=== PATIENT | male | born 1935 | race Caucasian/White ===

== ENCOUNTER 2017-06-26 17:22 | Emergency (ER) | payer MEDICARE, BC ==
[2017-06-26] MEDS ORDERED: NS 0.9% 1000 ML* 1,000 ML IV ONE (17:58)
[2017-06-26 18:21] LABS: ABS Basophils 0 10^3/ul (0-0.2); ABS Eosinophils 0 10^3/ul (0-0.6); ABS Lymphocytes 0.1 10^3/ul (1.0-4.8); ABS Monocytes 0.5 10^3/ul (0-0.8); ABS Neutrophils 2.9 10^3/ul (1.5-7.7); ABS Nucleated RBC 0 10^3/ul; Eosinophil % 0 % (0-6); Hematocrit 23 % (42-52); Hemoglobin 7.7 g/dl (14.0-18.0); Lymphocyte % 3.9 % (25-47); Mean Corpuscular HGB Conc 34 g/dl (31-36); Mean Corpuscular Hemoglobin 32 pg (27-31); Mean Corpuscular Volume 95 fL (80-94); Mean Platelet Volume 7 um3 (7.4-10.4); Nucleated Red Blood Cells % 0; Platelet Count 98 10^3/ul (150-450); Red Blood Count 2.39 10^6/ul (4.0-5.4); Red Cell Distribution Width 22 % (10.5-15); White Blood Count 3.5 10^3/ul (3.5-10.8)
[2017-06-26 18:30] LABS: EGFR Non-African American 82.2 (>60)
--- NOTE | 2017-06-26 18:56 | RAD ---
Indication: Expressive aphasia. CT of the brain was performed without IV contrast. Comparison is made with the previous MRI of the brain dated April 10, 2017. Ventricular structures are midline. No midline shift is noted. The extra-axial spaces are unremarkable. There is central and cortical atrophy noted. There is no evidence of intracranial mass or hemorrhage. No other high or low density lesions are identified. Paranasal sinuses and orbits are unremarkable. IMPRESSION: Age-appropriate atrophy. No definite intracranial mass or hemorrhage is noted.
[2017-06-26] MEDS ORDERED: Iohexol 350* (CONTRAST) 500 ML MDV IV ONE (19:13)
--- OUTSIDE RECORDS SUMMARY | 2017-06-26 19:31 | XMS REPORT ---
:1935 External Reference #:[id number] Author Organization [facility] Address [address] [place] [id number] Phone [phone] Care Team Providers Name Role Phone HCP/LW on file Primary Care Physician Unavailable Payers Type Date Identification Numbers Payment Provider Subscriber Medicare Primary Effective: Policy Number: National [facility] Juan J Moody 2000 [id number] Services PayID: [id number] [address] [place] [address] Medigap Part B Policy Number: [id number] Kassy Moody Group Number: [id number] [address] PayID: [id number] [place] [address] Problems Date Description Provider Status Onset: 02/03/2010 Coronary arteriosclerosis Riley Vargas M.D. Active Onset: 02/03/2010 Pure hypercholesterolemia Riley Vargas M.D. Active Onset: 02/03/2010 Benign essential hypertension Riley Vargas M.D. Active Onset: 02/03/2010 Impaired fasting glycaemia Riley Vargas M.D. Active Onset: 02/03/2010 Carotid artery occlusion Riley Vargas M.D. Active Onset: 02/06/2013 Carpal tunnel syndrome Riley Vargas M.D. 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 Active w unsp ang pctrs Family History Date Family Member(s) Problem(s) Comments Father Diabetes, Type II : (age 69 Father due to Liver Years) Disease Mother due to Natural () - in her Causes early 80s Onset: (age 60 Mother Angina Years) Mother Stroke in her 50s Number of Children 2 First Son Gary Second Son Tyler Number of Siblings Siblings: 1 First Sister High Blood Pressure First Sister "Neurological problems" "facial pains and can't move her hands". 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 Cigarette Use 02/09/2014 Former Cigarette Smoker quit in his 40s. Was a 1ppd smoker ETOH Use Current Alcohol Use: Daily 1/2 bottle of wine/day Allergies, Adverse Reactions, Alerts Date Description Reaction Status Severity Comments 08/03/2009 NKDA active Medications Medication Date Status Form Strength Qnty SIG Indications Ordering Provider Nitroglycerin 06/25/ Active Tablets 0.4mg 25tabs Dissolve One I25.10 Silcoff, 2017 Sub Tablet Under Riley The Kaylyn M.DSandra as Needed For Chest Pain. May Repeat After 5 Minutes For A Max Of 3 Doses. Folic Acid 06/25/ Active Tablets 1mg 1 by mouth Unknown 2017 every day Vitamin B12 06/25/ Active Tablets 1 sublingual Unknown 2017 Sub vitamin b12 qd Aspirin 02/05/ Active Tablets 325mg 1 by mouth I25.119 Unknown 2015 every day I25.10 Centrum Silver 02/08/2015 Active Tablets Adult 50 One tab po Unknown Adult 50+ daily Metoprolol 08/04/2010 Active Tablets ER 25mg 90ta take one I25. Silcoff , Succinate ER 24HR bs tablet by 10 jackson Lin in the M.D. morning for blood pressure and heart I10 Rosuvastatin 09/14/2008 Active Tablets 20mg 90tabs take one E78.00 Silcoff, Calcium tablet by jackson Lin once M.D. daily for high cholesterol Vitamins B 08/30/2008 Active Tablets Silcoff, Complex Arpan Lin Clonazepam 04/16/2017 - Hx Tablets 0.5mg 2tabs 1 by mouth Alicia, 04/18/2017 30-60min Riley prior to M.D. planned mri; may repeat after 1 hour if needed Levofloxacin 02/15/2017 - Hx Tablets 750mg 10tabs 1 by mouth Silcoff, 02/25/2017 every day for Riley, pneumonia M.DSandra Nitrostat 10/20/2012 - Hx Tablets 0.4mg 25tabs take one I25.10 Silcoff, 06/25/2017 Sub tablet by Riley, mouth for M.D. chest pain may repeat after 5 minutes. max of 3 doses PT For L Wrist 08/07/2011 - Hx please 719.43 Silcoff, Pain And Bilat 02/04/2012 evaluate and Riley Carpal Tunnel treat M.D. Syndrome Lisinopril 02/22/2009 - Hx Tablets 2.5mg 90tabs take one I10 Silcoff, 03/28/2017 tablet by Riley, mouth once M.D. daily for blood pressure Metoprolol ER 02/21/2009 - Hx Tablets 25mg 90tabs 1 po qam 414.00 Silcoff, 08/04/2010 Arpan Lin 401.1 Vitamin 10/20/2008 - Hx Tablets Sub 1000mcg 1 daily 790.09 Silcoff, B-12 05/09/2014 (sublingually) Arpan Lin Fish Oil 09/14/2008 - Hx 1000mg 2 po QDay 272.0 [place], 01/29/2012 MD Liane Asa 08/30/2008 - Hx Capsules Silcoff, 02/02/2011 Arpan Lin Centrum 08/30/2008 - Hx Tablets 1 po qd Silcoff, 05/09/2014 Arpan Lin Aspirin 08/30/2008 - Hx Tablets 81mg 0ta 1 qd for heart I25.119 Silcoff , (Ec) 02/07/2016 bs Arpan Lin I25.10 Atenolol 08/30/2008 - Hx Tablets 25mg 90tabs 1 po qd for 413.9 Silcoff, 02/21/2009 angina Arpan Lin 414.00 401.1 Nitroglycerin 08/30/2008 - Hx Tablets Sub 0.4mg 1bottle 1 po prn 413.9 Alicia, 02/05/2013 for chest Arpan Lin pain, may repeat after 5min to a max of 3 doses. 414.00 Immunizations CPT Code Status Date Vaccine Lot # [id number] Given 10/20/2008 Pneumococcal Immunization [id number] Given 10/20/2008 Td Immunization [id number] Refused 02/13/2017 Influenza Virus Vaccine, Quadrivalent, Split, Preservative Free [id number] Refused 02/09/2015 Prevnar 13 [id number] Refused 05/10/2014 Adacel or Boostrix, TDaP [id number] Refused 02/05/2011 Flu, Split Virus 3Yrs [id number] Refused 02/03/2010 Flu, Split Virus 3Yrs 05010 Refused 02/22/2009 Zostavax Vital Signs Date Vital Result Comment 06/26/2017 BP Systolic 96 mmHg BP Diastolic 58 mmHg BP Systolic Recheck 94 mmHg R arm sitting BP Diastolic Recheck 50 mmHg R arm sitting Heart Rate 68 /min reg Respiratory Rate 12 /min not laboured 02/13/2017 BP Systolic 104 mmHg BP Diastolic 62 mmHg Heart Rate 64 /min reg Respiratory Rate 14 /min not laboured Height 70 inches 5'10" w/shoes Weight 179.00 lb w/shoes BMI (Body Mass Index) 25.7 kg/m2 08/14/2016 BP Systolic 142 mmHg BP Diastolic 80 mmHg BP Systolic Recheck 138 mmHg R arm sitting BP Diastolic Recheck 80 mmHg R arm sitting Heart Rate 64 /min reg Height 70 inches 5'10" with sneakers Weight 200.00 lb with sneakers BMI (Body Mass Index) 28.7 kg/m2 02/07/2016 BP Systolic 126 mmHg BP Diastolic 68 mmHg BP Systolic Recheck 140 mmHg R arm sitting BP Diastolic Recheck 84 mmHg R arm sitting Height 70 inches 5'10" w/shoes Weight 200.00 lb w/shoes BMI (Body Mass Index) 28.7 kg/m2 08/10/2015 BP Systolic 124 mmHg BP Diastolic 70 mmHg Weight 199.00 lb w/shoes 02/09/2015 BP Systolic 138 mmHg BP Diastolic 70 mmHg BP Systolic Recheck 148 mmHg R arm sitting BP Diastolic Recheck 70 mmHg R arm sitting Height 70 inches 5'10" with sneakers Weight 200.00 lb with sneakers BMI (Body Mass Index) 28.7 kg/m2 08/10/2014 BP Systolic 126 mmHg BP Diastolic 70 mmHg Height 70 inches 5'10" w/shoes Weight 208.00 lb w/shoes BMI (Body Mass Index) 29.8 kg/m2 05/10/2014 BP Systolic 148 mmHg BP Diastolic 86 mmHg Heart Rate 60 /min reg Respiratory Rate 12 /min not laboured Weight 204.00 lb shoes on 02/09/2014 BP Systolic 124 mmHg BP Diastolic 70 mmHg Height 70 inches 5'10" w/shoes Weight 205.00 lb BMI (Body Mass Index) 29.4 kg/m2 08/10/2013 BP Systolic 118 mmHg BP Diastolic 80 mmHg BP Systolic Recheck 140 mmHg R arm sitting BP Diastolic Recheck 78 mmHg R arm sitting Weight 210.00 lb 02/06/2013 BP Systolic 132 mmHg BP Diastolic 70 mmHg Height 70.5 inches 5'10.50" shoes on Weight 203.00 lb shoes on BMI (Body Mass Index) 28.7 kg/m2 08/05/2012 BP Systolic 128 mmHg BP Diastolic 76 mmHg Height 69.25 inches 5'9.25" Weight 205.00 lb BMI (Body Mass Index) 30.1 kg/m2 02/05/2012 BP Systolic 126 mmHg BP Diastolic 78 mmHg Height 70 inches 5'10" Weight 194.00 lb BMI (Body Mass Index) 27.8 kg/m2 Last Menstrual Period 0 08/07/2011 BP Systolic 126 mmHg BP Diastolic 70 mmHg Heart Rate 64 /min reg Height 69.50 inches 5'9.50" Weight 199.00 lb BMI (Body Mass Index) 29.0 kg/m2 02/05/2011 BP Systolic 122 mmHg BP Diastolic 70 mmHg Heart Rate 52 /min reg Respiratory Rate 12 /min not laboured Height 70.50 inches 5'10.50" Weight 203.00 lb BMI (Body Mass Index) 28.7 kg/m2 08/04/2010 BP Systolic 100 mmHg BP Diastolic 60 mmHg BP Systolic Recheck 116 mmHg R arm sitting BP Diastolic Recheck 64 mmHg R arm sitting Height 69.25 inches 5'9.25" Weight 202.00 lb BMI (Body Mass Index) 29.6 kg/m2 02/03/2010 BP Systolic 122 mmHg BP Diastolic 58 mmHg Heart Rate 50 /min reg Respiratory Rate 14 /min not laboured Height 69 inches 5'9" Weight 194.00 lb BMI (Body Mass Index) 28.6 kg/m2 Last Menstrual Period 0 08/03/2009 BP Systolic 120 mmHg BP Diastolic 76 mmHg Height 70.75 inches 5'10.75" Weight 201.00 lb BMI (Body Mass Index) 28.2 kg/m2 02/22/2009 BP Systolic 106 mmHg BP Diastolic 56 mmHg Heart Rate 62 /min reg Weight 192.00 lb Last Menstrual Period 0 10/20/2008 BP Systolic 118 mmHg BP Diastolic 62 mmHg Heart Rate 52 /min reg Weight 196.00 lb Last Menstrual Period 0 09/15/2008 BP Systolic 120 mmHg BP Diastolic 80 mmHg Heart Rate 60 /min reg Weight 201.00 lb Last Menstrual Period 0 08/30/2008 BP Systolic 140 mmHg BP Diastolic 80 mmHg Heart Rate 76 /min reg Respiratory Rate 12 /min not laboured Height 70 inches 5'10" Weight 205.00 lb BMI (Body Mass Index) 29.4 kg/m2 Last Menstrual Period 0 Results Test Date Test Result H/L Range Note CBC No Diff 06/24/2017 White Blood Count 2.8 10^3/uL Low 3.5-10.8 Red Blood Count 2.77 10^6/uL Low 4.0-5.4 Hemoglobin 8.9 g/dL Low 14.0-18.0 Hematocrit 26 % Low 42-52 Mean Corpuscular Volume 93 fL 80-94 Mean Corpuscular Hemoglobin 32 pg High 27-31 Mean Corpuscular HGB Conc 35 g/dL 31-36 Red Cell Distribution Width 19 % High 10.5-15 Platelet Count 93 10^3/uL Low 150-450 1 Mean Platelet Volume 7 um3 Low 7.4-10.4 Comp Metabolic Panel 06/24/2017 Sodium 137 mmol/L 133-145 Potassium 4.0 mmol/L 3.5-5.0 Chloride 102 mmol/L 101-111 Co2 Carbon Dioxide 27 mmol/L 22-32 Anion Gap 8 mmol/L 2-11 Glucose 124 mg/dL High 70-100 Blood Urea Nitrogen 16 mg/dL 6-24 Creatinine 0.89 mg/dL 0.67-1.17 BUN/Creatinine Ratio 18.0 8-20 Calcium 9.7 mg/dL 8.6-10.3 Total Protein 7.1 g/dL 6.4-8.9 Albumin 3.7 g/dL 3.2-5.2 Globulin 3.4 g/dL 2-4 Albumin/Globulin Ratio 1.1 1-3 Total Bilirubin 0.50 mg/dL 0.2-1.0 Alkaline Phosphatase 78 U/L 34-104 Alt 15 U/L 7-52 Ast 21 U/L 13-39 Egfr Non- 82.2 >60 Egfr 105.8 >60 2 Comp Metabolic Panel 04/26/2017 Sodium 136 mmol/L 133-145 Potassium 4.4 mmol/L 3.5-5.0 Chloride 100 mmol/L Low 101-111 Co2 Carbon Dioxide 29 mmol/L 22-32 Anion Gap 7 mmol/L 2-11 Glucose 108 mg/dL High 70-100 Blood Urea Nitrogen 12 mg/dL 6-24 Creatinine 0.86 mg/dL 0.67-1.17 BUN/Creatinine Ratio 14.0 8-20 Calcium 9.4 mg/dL 8.6-10.3 Total Protein 6.9 g/dL 6.4-8.9 Albumin 3.3 g/dL 3.2-5.2 Globulin 3.6 g/dL 2-4 Albumin/Globulin Ratio 0.9 Low 1-3 Total Bilirubin 0.70 mg/dL 0.2-1.0 Alkaline Phosphatase 58 U/L 34-104 Alt 15 U/L 7-52 Ast 23 U/L 13-39 Egfr Non- 85.8 >60 Egfr 110.3 >60 3 Laboratory test finding 04/08/2017 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 SEE RESULT BELOW 4 Platelet Count 04/08/2017 Platelet Count 196 10^3/uL 150-450 Mean Platelet Volume 6 um3 Low 7.4-10.4 Laboratory test 04/08/2017 Tissue Culture & SEE RESULT 5, 6 finding Sensitiv BELOW Laboratory test 04/08/2017 Mycobacterial Culture See Comment 5, 7 finding Laboratory test 04/08/2017 Inr/Protime 1.17 High 0.77-1.0 8 finding 2 Partial Thrombo Time PTT 32.9 seconds 26.0-36.3 Laboratory test finding 03/26/2017 Blood Urea Nitrogen BUN 19 mg/dL 6-24 Creatinine 03/26/2017 Creatinine 1.05 mg/dL 0.67-1.17 Egfr Non- 68.1 >60 Egfr 87.6 >60 9 Laboratory test finding 03/20/2017 Blood Urea Nitrogen BUN <pending> Creatinine <pending> CBC Auto Diff 02/15/2017 White Blood Count 7.2 10^3/uL 3.5-10.8 Red Blood Count 3.90 10^6/uL Low 4.0-5.4 Hemoglobin 12.7 g/dL Low 14.0-18.0 Hematocrit 37 % Low 42-52 Mean Corpuscular Volume 96 fL High 80-94 Mean Corpuscular Hemoglobin 33 pg High 27-31 Mean Corpuscular HGB Conc 34 g/dL 31-36 Red Cell Distribution Width 14 % 10.5-15 Platelet Count 204 10^3/uL 150-450 Mean Platelet Volume 7 um3 Low 7.4-10.4 Abs Neutrophils 5.3 10^3/uL 1.5-7.7 Abs Lymphocytes 1.0 10^3/uL 1.0-4.8 Abs Monocytes 0.8 10^3/uL 0-0.8 Abs Eosinophils 0.2 10^3/uL 0-0.6 Abs Basophils 0 10^3/uL 0-0.2 Abs Nucleated RBC 0 10^3/uL Granulocyte % 73.5 % 38-83 Lymphocyte % 13.3 % Low 25-47 Monocyte % 10.4 % High 1-9 Eosinophil % 2.3 % 0-6 Basophil % 0.5 % 0-2 Nucleated Red Blood Cells % 0 Liver Function Panel 02/15/2017 Total Protein 7.2 g/dL 6.4-8.9 Albumin 3.6 g/dL 3.2-5.2 Globulin 3.6 g/dL 2-4 Albumin/Globulin Ratio 1.0 1-3 Total Bilirubin 0.50 mg/dL 0.2-1.0 Direct Bilirubin 0.10 mg/dL 0.03-0.18 Indirect Bilirubin 0.4 mg/dL 0.3-1.0 Alkaline Phosphatase 69 U/L 34-104 Alt 12 U/L 7-52 Ast 19 U/L 13-39 Laboratory test finding 02/15/2017 TSH (Thyroid Stim Horm) 1.51 mcIU/mL 0.34-5.60 Free T4 (Free Thyroxine) 0.73 ng/dL 0.61-1.12 T3 Total 0.87 ng/mL 0.87-1.78 Laboratory test finding 02/13/2017 Hemoglobin A1c 5.1 Lipid Profile (Trig/Chol/HDL) 02/04/2017 Triglycerides 66 mg/dL 10 Cholesterol 157 mg/dL 11 HDL Cholesterol 52.1 mg/dL 12 LDL Cholesterol 92 mg/dL 13 Laboratory test finding 02/04/2017 Alt 13 U/L 7-52 14 Basic Metabolic Panel 02/04/2017 Sodium 137 mmol/L 133-145 Potassium 4.3 mmol/L 3.5-5.0 Chloride 103 mmol/L 101-111 Co2 Carbon Dioxide 29 mmol/L 22-32 Anion Gap 5 mmol/L 2-11 Glucose 100 mg/dL 70-100 Blood Urea Nitrogen 18 mg/dL 6-24 Creatinine 1.05 mg/dL 0.67-1.17 BUN/Creatinine Ratio 17.1 8-20 Calcium 9.5 mg/dL 8.6-10.3 Egfr Non- 68.1 >60 Egfr 87.6 >60 15 Urine Micro Inhouse 08/14/2016 Ua WBC occ 16 Ua RBC 2-3 16 Ua Casts - 16 Ua Epi occ 16 Ua Other - 16 Ua Glucose - 16 Ua Bilirubin - 16 Ua Ketones - 16 Ua Specific [place] 1.030 16 Ua Blood - 16 Ua PH 5.0 16 Ua Protein - 16 Ua Urobilinogen - 16 Ua Nitrite - 16 Ua Leukocytes - 16 Laboratory test finding 02/07/2016 Hemoglobin A1c 5.2 Basic Metabolic Panel 02/02/2016 Sodium 137 mmol/L 133-145 Potassium 4.4 mmol/L 3.5-5.0 Chloride 103 mmol/L 101-111 Co2 Carbon Dioxide 28 mmol/L 22-32 Anion Gap 6 mmol/L 2-11 Glucose 98 mg/dL 70-100 Blood Urea Nitrogen 16 mg/dL 6-24 Creatinine 1.00 mg/dL 0.67-1.17 BUN/Creatinine Ratio 16.0 8-20 Calcium 9.6 mg/dL 8.6-10.3 Egfr Non- 72.3 >60 Egfr 92.9 >60 17 Laboratory test finding 02/02/2016 Alt (SGPT) 22 U/L 7-52 18 Lipid Profile (Trig/Chol/HDL) 02/02/2016 Triglycerides 85 mg/dL 19 Cholesterol 175 mg/dL 20 HDL Cholesterol 56.5 mg/dL 21 LDL Cholesterol 102 mg/dL 22 Urine Micro Inhouse 02/09/2015 Ua WBC 0-2 Ua RBC 0-3 Ua Epi 0-2 Ua Specific [place] 1.020 Ua PH 5.0 Laboratory test finding 02/09/2015 Hemoglobin A1c 5.7 Basic Metabolic Panel 02/04/2015 Sodium 137 mmol/L 133-145 Potassium 4.5 mmol/L 3.5-5.0 Chloride 104 mmol/L 101-111 Co2 Carbon Dioxide 25 mmol/L 22-32 Anion Gap 8 mmol/L 2-11 Glucose 108 mg/dL High 70-100 Blood Urea Nitrogen 17 mg/dL 6-24 Creatinine 0.98 mg/dL 0.67-1.17 BUN/Creatinine Ratio 17.3 8-20 Calcium 9.6 mg/dL 8.6-10.3 Egfr Non- 74.2 >60 Egfr 95.4 >60 23 Laboratory test finding 02/04/2015 Alt (SGPT) 31 U/L 7-52 Lipid Profile (Trig/Chol/HDL) 02/04/2015 Triglycerides 70 mg/dL 24 Cholesterol 171 mg/dL 25 HDL Cholesterol 59.6 mg/dL 26 LDL Cholesterol 97 mg/dL 27 Urine Micro Inhouse 05/10/2014 Ua WBC 6-7 Ua RBC - Ua Casts - Ua Epi 7-8 Ua Other mucous, sediment Ua Glucose - Ua Bilirubin - Ua Ketones - Ua Specific [place] 1.025 Ua Blood - Ua PH 6.0 Ua Protein - Ua Urobilinogen - Ua Nitrite - Ua Leukocytes - Lipid Profile (Trig/Chol/HDL) 02/10/2014 Triglycerides 66 mg/dL 28 Cholesterol 159 mg/dL 29 HDL Cholesterol 55.7 mg/dL 30 LDL Cholesterol 90 mg/dL 31 Laboratory test finding 02/10/2014 Alt 29 U/L 7-52 Basic Metabolic Panel 02/10/2014 Sodium 137 mmol/L 133-145 Potassium 5.0 mmol/L 3.7-5.6 Chloride 103 mmol/L 101-111 Co2 Carbon Dioxide 29 mmol/L 22-32 Anion Gap 5 mmol/L 2-11 Glucose 108 mg/dL High 70-100 Blood Urea Nitrogen 18 mg/dL 6-24 Creatinine 0.98 mg/dL 0.67-1.17 BUN/Creatinine Ratio 18.4 8-20 Calcium 9.4 mg/dL 8.6-10.3 Egfr Non- 74.4 >60 Egfr 95.6 >60 32 Laboratory test finding 02/09/2014 Hemoglobin A1c 5.1 Urine Micro Inhouse 02/06/2013 Ua WBC - Ua RBC - Ua Casts - Ua Epi - Ua Other - Ua Glucose - Ua Bilirubin - Ua Ketones - Ua Specific [place] 1.010 Ua Blood - Ua PH 5.0 Ua Protein - Ua Urobilinogen - Ua Nitrite - Ua Leukocytes - Laboratory test finding 02/06/2013 Hemoglobin A1c 5.3 Basic Metabolic Panel 01/27/2013 Sodium 136 mmol/L 133-145 Potassium 4.5 mmol/L 3.5-5.0 Chloride 102 mmol/L 101-111 Co2 Carbon Dioxide 28.0 mmol/L 22-32 Anion Gap 6.0 mmol/L 2-11 Glucose 102 mg/dL High 70-100 Blood Urea Nitrogen 16 mg/dL 6-24 Creatinine 1.10 mg/dL 0.50-1.40 BUN/Creatinine Ratio 14.5 8-20 Calcium 9.2 mg/dL 8.1-9.9 Egfr Non- 65.3 >60 Egfr 83.9 >60 33 Liver Function Panel 01/27/2013 Total Protein 6.5 g/dL 6.2-8.1 Albumin 4.1 g/dL 3.2-5.2 Globulin 2.4 g/dL 2-4 Albumin/Globulin Ratio 1.7 1-3 Total Bilirubin 0.7 mg/dL 0.4-1.5 Direct Bilirubin 0.2 mg/dL 0.1-0.5 Indirect Bilirubin 0.5 mg/dL 0.3-1.0 Alkaline Phosphatase 50 U/L 30-110 Alt 37 U/L 14-54 Ast 44 U/L High 12-42 Basic Metabolic Panel 01/22/2012 Sodium 138 mmol/L 133-145 Potassium 4.4 mmol/L 3.5-5.0 Chloride 103 mmol/L 101-111 Co2 Carbon Dioxide 28.0 mmol/L 22-32 Anion Gap 7.0 mmol/L 2-11 Glucose 108 mg/dL High 70-100 Blood Urea Nitrogen 19 mg/dL 6-24 Creatinine 0.90 mg/dL 0.50-1.40 BUN/Creatinine Ratio 21.1 High 8-20 Calcium 9.2 mg/dL 8.1-9.9 Egfr Non- 82.5 >60 Egfr 106.1 >60 34 Laboratory test finding 01/22/2012 Alt 31 U/L 14-54 Lipid Profile (Trig/Chol/HDL) 01/22/2012 Triglycerides 67 mg/dL 40-200 Cholesterol 167 mg/dL Less than 200 35 HDL Cholesterol 60 mg/dL 40-60 36 Cholesterol/HDL Ratio 2.8 AVERAGE 1-4.44 LDL Cholesterol 93.6 mg/dL Less Than 100 Laboratory test finding 02/05/2011 Hemoglobin A1c 5.6 Urine Micro Inhouse 02/05/2011 Ua WBC 20+ Ua RBC - Ua Casts - Ua Epi - Ua Other branching yeast Ua Glucose - Ua Bilirubin - Ua Ketones - Ua Specific [place] 1.010 Ua Blood - Ua PH 6.5 Ua Protein - Ua Urobilinogen - Ua Nitrite - Ua Leukocytes tr Laboratory test finding 01/30/2011 Alt (SGPT) 34 U/L 17-63 Lipid Profile (Trig/Chol/HDL) 01/30/2011 Triglyceride 63 mg/dL 40-200 Cholesterol 156 mg/dL Less Than 200 37 High Density Lipoprotein 58 mg/dL 40-60 38 Cholesterol/HDL Ratio 2.69 AVERAGE 1-4.97 Low Density Lipoprotein 85 mg/dL Less Than 100 39 Basic Metabolic Panel 01/30/2011 Sodium 139 mmol/L 135-145 Potassium 4.5 mmol/L 3.5-5.0 Chloride 106 mmol/L 101-111 Co2 (Carbon Dioxide) 27.0 mmol/L 22-32 Anion Gap 6.0 mmol/L 2-11 40 Glucose 123 mg/dL High 70-100 BUN 15 mg/dL 6-24 Creatinine 1.0 mg/dL 0.50-1.40 One Over Creatinine 1.00 BUN/Creatinine Ratio 15.0 8-20 Calcium 9.2 mg/dL 8.1-9.9 eGFR Non- 73.2 > 60 eGFR 94.2 > 60 41 Laboratory test finding 05/16/2010 Hemoglobin A1c 5.3 % Less Than 6.0 42 Basic Metabolic Panel 05/16/2010 Sodium 134 mmol/L Low 135-145 Potassium 4.5 mmol/L 3.5-5.0 Chloride 102 mmol/L 101-111 Co2 (Carbon Dioxide) 26.0 mmol/L 22-32 Anion Gap 6.0 mmol/L 2-11 43 Glucose 104 mg/dL High 70-100 BUN 11 mg/dL 6-24 Creatinine 1.00 mg/dL 0.50-1.40 One Over Creatinine 1.00 BUN/Creatinine Ratio 11.0 8-20 Calcium 8.9 mg/dL 8.1-9.9 eGFR Non- 78.1 > 60 eGFR 94.5 > 60 44 Laboratory test finding 05/16/2010 Alt (SGPT) 41 U/L 17-63 Lipid Profile (Trig/Chol/HDL) 05/16/2010 Triglyceride 89 mg/dL 40-200 Cholesterol 163 mg/dL Less Than 200 45 High Density Lipoprotein 52 mg/dL 40-60 46 Cholesterol/HDL Ratio 3.13 AVERAGE 1-4.97 Low Density Lipoprotein 93 mg/dL Less Than 100 47 Lipid Profile (Trig/Chol/HDL) 05/25/2009 Triglyceride 68 mg/dL 40-200 Cholesterol 176 mg/dL Less Than 200 48 High Density Lipoprotein 65 mg/dL High 40-60 49 Cholesterol/HDL Ratio 2.71 AVERAGE 1-4.97 Low Density Lipoprotein 97 mg/dL Less Than 100 50 Laboratory test finding 05/25/2009 Alt (SGPT) 38 U/L 17-63 Basic Metabolic Panel 05/25/2009 Sodium 135 mmol/L 135-145 Potassium 4.9 mmol/L 3.5-5.0 Chloride 104 mmol/L 101-111 Co2 (Carbon Dioxide) 26.0 mmol/L 22-32 Anion Gap 5.0 mmol/L 2-11 51 Glucose 102 mg/dL High 70-100 52 BUN 17 mg/dL 6-24 Creatinine 0.90 mg/dL 0.50-1.40 One Over Creatinine 1.10 BUN/Creatinine Ratio 18.9 8-20 Calcium 9.3 mg/dL 8.1-9.9 53 eGFR Non- 88.4 > 60 eGFR 107.0 > 60 54 CBC With Electronic Diff 05/25/2009 White Blood Count 4.6 CUMM Low 4.8- 10.8 Red Cell Count 4.24 CUMM Low 4.6-6.2 Hemoglobin 14.8 g/dL 14.0-18.0 Hematocrit 43 % 42-52 Mean Corpuscular Volume 101 um3 High 80-94 Mean Corpuscular Hemoglob 35 pg High 27-31 Mean Corpuscular HGB Cone 35 g/dL 32-36 Redcell Distribution WDTH 13 % 10.5-15 Platelet Count 150 CUMM 150-450 Mean Platelet Volume 7.4 um3 7.4-10.4 Gran % 58.3 % 38-83 Lymph % 25.3 % 25-47 Mononuclear % 11.1 % High 1-9 Eosinophil % 5.0 % 0-6 Basophil % 0.3 % 0-2 Abs Lymphs 1.2 1.0-4.8 Abs Mononuclear 0.5 0-0.8 Absolute Neutrophil Count 2.7 1.5-7.7 Abs Eosinophils 0.2 0-0.6 Abs Basophils 0 0-0.2 Laboratory test finding 05/25/2009 Vitamin B12 288 pg/mL 180-914 Laboratory test finding 10/11/2008 Vitamin B12 237 pg/mL 180-914 Folate RBC (RBC Folic Acid) 572 ng/mL 268-616 55 Basic Metabolic Panel 10/11/2008 Sodium 138 mmol/L 135-145 Potassium 4.5 mmol/L 3.5-5.0 Chloride 103 mmol/L 101-111 Co2 (Carbon Dioxide) 28.0 mmol/L 22-32 Anion Gap 7.0 mmol/L 2-11 56 Glucose 106 mg/dL High 70-100 57 BUN 11 mg/dL 6-24 Creatinine 1.00 mg/dL 0.50-1.40 One Over Creatinine 1.00 BUN/Creatinine Ratio 11.0 8-20 Calcium 9.4 mg/dL 8.1-9.9 58 Laboratory test finding 10/11/2008 CPK (Creatine Kinase) 124 U/L 0-200 Lipid Profile (Trig/Chol/HDL) 10/11/2008 Triglyceride 97 mg/dL 40-200 Cholesterol 140 mg/dL Less Than 200 59 High Density Lipoprotein 45 mg/dL 40-60 60 Cholesterol/HDL Ratio 3.11 AVERAGE 1-4.97 Low Density Lipoprotein 76 mg/dL Less Than 100 61 Laboratory test finding 10/11/2008 Alt (SGPT) 45 U/L 17-63 PT/Inr Stat 09/07/2008 Inr 1.15 62, 63 Protime 13.9 SEC High 10.67-13.64 62, 64 CBC With Electronic Diff 08/30/2008 White Blood Count 5.3 CUMM 4.8-10.8 Red Cell Count 4.72 CUMM 4.6-6.2 Hemoglobin 16.4 g/dL 14.0-18.0 Hematocrit 47 % 42-52 Mean Corpuscular Volume 99 um3 High 80-94 Mean Corpuscular Hemoglob 35 pg High 27-31 Mean Corpuscular HGB Cone 35 g/dL 32-36 Redcell Distribution WDTH 13 % 10.5-15 Platelet Count 188 CUMM 150-450 Mean Platelet Volume 7.4 um3 7.4-10.4 Gran % 66.3 % 38-83 Lymph % 21.0 % Low 25-47 Mononuclear % 9.8 % High 1-9 Eosinophil % 2.6 % 0-6 Basophil % 0.3 % 0-2 Abs Lymphs 1.1 1.0-4.8 Abs Mononuclear 0.5 0-0.8 Absolute Neutrophil Count 3.5 1.5-7.7 Abs Eosinophils 0.1 0-0.6 Abs Basophils 0 0-0.2 Lipid Profile (Trig/Chol/HDL) 08/30/2008 Triglyceride 147 mg/dL 40-200 Cholesterol 274 mg/dL High Less Than 200 65 High Density Lipoprotein 48 mg/dL 40-60 66 Cholesterol/HDL Ratio 5.71 AVERAGE High 1-4.97 Low Density Lipoprotein 197 mg/dL High Less Than 100 67 Laboratory test finding 08/30/2008 Alt (SGPT) 48 U/L 17-63 TSH 1.87 MIU/ML 0.34-5.60 Basic Metabolic Panel 08/30/2008 Sodium 136 mmol/L 135-145 Potassium 4.2 mmol/L 3.5-5.0 Chloride 101 mmol/L 101-111 Co2 (Carbon Dioxide) 26.0 mmol/L 22-32 Anion Gap 9.0 mmol/L 2-11 68 Glucose 103 mg/dL High 70-100 69 BUN 9 mg/dL 6-24 Creatinine 1.10 mg/dL 0.50-1.40 One Over Creatinine 0.90 BUN/Creatinine Ratio 8.2 8-20 Calcium 10.1 mg/dL High 8.1-9.9 70 1 Consistent with Previous Results Reported on 06/21/17. 2 Because ethnic data is not always readily available, this report includes an eGFR for both -Americans and non- Americans. The National Kidney Disease Education Program (NKDEP) does not endorse the use of the MDRD equation for patients that are not between the ages of 18 and 70, are , have extremes of body size, muscle mass, or nutritional status, or are non- or non-. According to the National Kidney Foundation, irrespective of diagnosis, the stage of the disease is based on the level of kidney function: Stage Description GFR(mL/min/1.73 m(2)) 1 Kidney damage with normal or decreased GFR 90 2 Kidney damage with mild decrease in GFR 60-89 3 Moderate decrease in GFR 30-59 4 Severe decrease in GFR 15-29 5 Kidney failure <15 (or dialysis) 3 Because ethnic data is not always readily available, this report includes an eGFR for both -Americans and non- Americans. The National Kidney Disease Education Program (NKDEP) does not endorse the use of the MDRD equation for patients that are not between the ages of 18 and 70, are , have extremes of body size, muscle mass, or nutritional status, or are non- or non-. According to the [employer], irrespective of diagnosis, the stage of the disease is based on the level of kidney function: Stage Description GFR(mL/min/1.73 m(2)) 1 Kidney damage with normal or decreased GFR 90 2 Kidney damage with mild decrease in GFR 60-89 3 Moderate decrease in GFR 30-59 4 Severe decrease in GFR 15-29 5 Kidney failure <15 (or dialysis) 4 SEE RESULT BELOW Name: JUAN J MOODY : [address]: Riley Vargas MD Acct: [id number] Unit: [id number] AGE: 81 Location: Re04/08/17 SEX: M Status: REG REF SPEC: [id number] MARIA ESTHER: 04/08/17-[address]: Riley Vargas MD REQ: [id number] RECD: 04/08/171220 STATUS: KALYAN YAN DR: Zachery Godwin MD _ ORDERED: FNA-IMG GUID BX, CY ADEQ-ADDL P, LEVEL 4, CYTO ADEQ-1ST P FINAL DIAGNOSIS Lung, right upper lobe, US guided fine needle aspiration: -- Malignant- squamous cell carcinoma. See comment. Comment: The following immunochemical stains were performed with appropriate controls on formalin fixed cell block material CK5/6 positive P63 positive ALK negative PDL 1 negative (percent 0% tumor, less than 10% lymphocytes) The morphologic features and immunophenotypic findings support the above rendered diagnosis. Dr. Goel has reviewed this case and concurs. A cell block was prepared in the evaluation of this specimen. Smears and cell block reveal similar findings. LUNG RIGHT - CT GUIDED RIGHT LUNG FINE NEEDLE ASPIRATION CONTINUED ON NEXT PAGE * ML=Testing performed at Main Lab DEPARTMENT OF PATHOLOGY, [address] [place] [address] Marcial Roth M.D. Director [facility] # [id number] RUN DATE: 04/09/17 [facility] LAB LIVE PAGE 2 Patient: JUAN J MOODY [id number] (Continued) CLINICAL HISTORY (Continued) CLINICAL HISTORY 6.8 cm right upper lobe mass. IMMEDIATE INTERPRETATION Pass 1-adequate, pass 2-inadequate, pass 3 4-adequate. GROSS DESCRIPTION CT Guided, fine needle aspiration x 4 passes with 3 Alcohol fixed slide(s) and 2 needle rinse in formalin for cell blocks labeled [id number] and [id number]. Signed (signature on file) Marcial Roth MD [id number] END OF REPORT * ML=Testing performed at Main Lab DEPARTMENT OF PATHOLOGY, [address] [place] [address] Marcial Roth M.D. Director [facility] # [id number] 5 R UPPER LOBE LUNG FNA 6 SEE RESULT BELOW Name: JUAN J MOODY : [address]: Riley Vargas MD Acct: [id number] Unit: [id number] AGE: 81 Location: SP Re04/08/17 SEX: M Status: REG REF SPEC: [id number] MARIA ESTHER: 04/08/17-[address] [facility] DR: Riley Vargas MD REQ: [id number] RECD: 04/08/173 STATUS: COMP _ SOURCE: TISSUE SPDESC:RT UPP LOB ORDERED: Tissue Cult/GS, Fungal - Other, AFB Cult Smear COMMENTS: R UPPER LOBE LUNG FNA Procedure Result Reported Site Tissue Gram Stain Final 04/08/17- 1346 ML 2+ Neutrophils No Organisms Seen Preparation By Direct Smear Tissue Culture Final 04/12/17- 0909 ML No Growth Day 4 Fungal Cult - Other Sources Final 05/06/17- 1059 ML No Growth Week 4 Acid Fast Stain - Direct Final 04/08/17- 1359 ML AFB Smear Result No Acid Fast Bacillus Present (Negative) Preparation By Direct Smear Due to limited sensitivity of the smear, results should be used as an adjunct in evaluating the patient's status. This specimen has been sent to referral laboratory for mycobacterial culture. * ML - MAIN LAB ([facility]) . END OF REPORT * ML=Testing performed at Main Lab DEPARTMENT OF PATHOLOGY, [address], [place], [place] [address] Marcial Roth M.D. Director [facility] # [id number] 7 SOURCE: LUNG, FNA R UPPER LOBE LUNG Mycobacteria specimen plated for culture, volume inadequate for optimal recovery. MYCOBACTERIAL CULTURE FINAL No growth after 60 days of incubation. Test Performed by: [address] [id number] 8 Please note the change in INR reference range effective 17. 9 Because ethnic data is not always readily available, this report includes an eGFR for both -Americans and non- Americans. The National Kidney Disease Education Program (NKDEP) does not endorse the use of the MDRD equation for patients that are not between the ages of 18 and 70, are , have extremes of body size, muscle mass, or nutritional status, or are non- or non-. According to the National Kidney Foundation, irrespective of diagnosis, the stage of the disease is based on the level of kidney function: Stage Description GFR(mL/min/1.73 m(2)) 1 Kidney damage with normal or decreased GFR 90 2 Kidney damage with mild decrease in GFR 60-89 3 Moderate decrease in GFR 30-59 4 Severe decrease in GFR 15-29 5 Kidney failure <15 (or dialysis) 10 Desirable: <150 Borderline High: 150-199 High: 200-499 Very High: >500 11 Desirable: <200 Borderline High: 200-239 High: >239 12 Low: <40 Desirable: 40-60 High: >60 13 Desirable: <100 Near Optimal: 100-129 Borderline High: 130-159 High: 160-189 Very High: >189 14 FASTING 12 HOUR 15 Because ethnic data is not always readily available, this report includes an eGFR for both -Americans and non- Americans. The National Kidney Disease Education Program (NKDEP) does not endorse the use of the MDRD equation for patients that are not between the ages of 18 and 70, are , have extremes of body size, muscle mass, or nutritional status, or are non- or non-. According to the National Kidney Foundation, irrespective of diagnosis, the stage of the disease is based on the level of kidney function: Stage Description GFR(mL/min/1.73 m(2)) 1 Kidney damage with normal or decreased GFR 90 2 Kidney damage with mild decrease in GFR 60-89 3 Moderate decrease in GFR 30-59 4 Severe decrease in GFR 15-29 5 Kidney failure <15 (or dialysis) 16 void, clear, dark yellow 17 Because ethnic data is not always readily available, this report includes an eGFR for both -Americans and non- Americans. The National Kidney Disease Education Program (NKDEP) does not endorse the use of the MDRD equation for patients that are not between the ages of 18 and 70, are , have extremes of body size, muscle mass, or nutritional status, or are non- or non-. According to the National Kidney Foundation, irrespective of diagnosis, the stage of the disease is based on the level of kidney function: Stage Description GFR(mL/min/1.73 m(2)) 1 Kidney damage with normal or decreased GFR 90 2 Kidney damage with mild decrease in GFR 60-89 3 Moderate decrease in GFR 30-59 4 Severe decrease in GFR 15-29 5 Kidney failure <15 (or dialysis) 18 FASTING 12 HOUR 19 Desirable <150 Borderline high 150-199 High 200-499 Very High >500 20 Desirable <200 Borderline high 200-239 High >239 21 Low <40 Desirable: 40-60 High: >60 22 Desirable: <100 mg/dL Near Optimal: 100-129 mg/dL Borderline High: 130-159 mg/dL High: 160-189 mg/dL Very High: >189 mg/dL 23 Because ethnic data is not always readily available, this report includes an eGFR for both -Americans and non- Americans. The National Kidney Disease Education Program (NKDEP) does not endorse the use of the MDRD equation for patients that are not between the ages of 18 and 70, are , have extremes of body size, muscle mass, or nutritional status, or are non- or non-. According to the National Kidney Foundation, irrespective of diagnosis, the stage of the disease is based on the level of kidney function: Stage Description GFR(mL/min/1.73 m(2)) 1 Kidney damage with normal or decreased GFR 90 2 Kidney damage with mild decrease in GFR 60-89 3 Moderate decrease in GFR 30-59 4 Severe decrease in GFR 15-29 5 Kidney failure <15 (or dialysis) 24 Desirable <150 Borderline high 150-199 High 200-499 Very High >500 25 Desirable <200 Borderline high 200-239 High >239 26 Low <40 Desirable: 40-60 High: >60 27 Desirable: <100 mg/dL Near Optimal: 100-129 mg/dL Borderline High: 130-159 mg/dL High: 160-189 mg/dL Very High: >189 mg/dL 28 Desirable <150 Borderline high 150-199 High 200-499 Very High >500 29 Desirable <200 Borderline high 200-239 High >239 30 Low <40 Desirable: 40-60 High: >60 31 Desirable <100 Near Optimal 100-129 Borderline high 130-159 High 160-189 Very High >189 32 Because ethnic data is not always readily available, this report includes an eGFR for both -Americans and non- Americans. The National Kidney Disease Education Program (NKDEP) does not endorse the use of the MDRD equation for patients that are not between the ages of 18 and 70, are , have extremes of body size, muscle mass, or nutritional status, or are non- or non-. According to the National Kidney Foundation, irrespective of diagnosis, the stage of the disease is based on the level of kidney function: Stage Description GFR(mL/min/1.73 m(2)) 1 Kidney damage with normal or decreased GFR 90 2 Kidney damage with mild decrease in GFR 60-89 3 Moderate decrease in GFR 30-59 4 Severe decrease in GFR 15-29 5 Kidney failure <15 (or dialysis) 33 Because ethnic data is not always readily available, this report includes an eGFR for both -Americans and non- Americans. The National Kidney Disease Education Program (NKDEP) does not endorse the use of the MDRD equation for patients that are not between the ages of 18 and 70, are , have extremes of body size, muscle mass, or nutritional status, or are non- or non-. According to the National Kidney Foundation, irrespective of diagnosis, the stage of the disease is based on the level of kidney function: Stage Description GFR(mL/min/1.73 m(2)) 1 Kidney damage with normal or decreased GFR 90 2 Kidney damage with mild decrease in GFR 60-89 3 Moderate decrease in GFR 30-59 4 Severe decrease in GFR 15-29 5 Kidney failure <15 (or dialysis) 34 Because ethnic data is not always readily available, this report includes an eGFR for both -Americans and non- Americans. The National Kidney Disease Education Program (NKDEP) does not endorse the use of the MDRD equation for patients that are not between the ages of 18 and 70, are , have extremes of body size, muscle mass, or nutritional status, or are non- or non-. According to the National Kidney Foundation, irrespective of diagnosis, the stage of the disease is based on the level of kidney function: Stage Description GFR(mL/min/1.73 m(2)) 1 Kidney damage with normal or decreased GFR 90 2 Kidney damage with mild decrease in GFR 60-89 3 Moderate decrease in GFR 30-59 4 Severe decrease in GFR 15-29 5 Kidney failure <15 (or dialysis) 35 Desirable: Less than 200 MG/DL Borderline-High Risk: 200-239 MG/DL High-Risk: 240 MG/DL and over 36 HDL Interpretation: Undesirable: High Risk: Less than 40 MG/DL Desirable: Low Risk: Greater than 60 MG/DL 37 CHOLESTEROL INTERPRETATION: Desirable: Less than 200 MG/DL Borderline-High Risk: 200-239 MG/DL High-Risk: 240 MG/DL and over 38 HDL INTERPRETATION: Undesirable: High Risk: Less than 40 MG/DL Desirable: Low Risk: Greater than 60 MG/DL 39 LDL INTERPRETATION: Low Risk Optimal Level: LDL Less than 100 MG/DL Near or Above Optimal: LDL 100-129 MG/DL Borderline High Risk: LDL 130-159 MG/DL High Risk: LDL 160-189 MG/DL Very High Risk: LDL Greater than 189 MG/DL 40 Anion gap measurement may be of limited value in the presence of any alkalosis, especially in a combined acid base disorder. . 41 Because ethnic data is not always readily available, this report includes an eGFR for both -Americans and non- Americans. The National Kidney Disease Education Program (NKDEP) does not endorse the use of the MDRD equation for patients that are not between the ages of 18 and 70, are , have extremes of body size, muscle mass, or nutritional status, or are non- or non-. According to the National Kidney Foundation, irrespective of diagnosis, the stage of the disease is based on the level of kidney function: Stage Description GFR(mL/min/1.73 m(2)) 1 Kidney damage with normal or decreased GFR 90 2 Kidney damage with mild decrease in GFR 60-89 3 Moderate decrease in GFR 30-59 4 Severe decrease in GFR 15-29 5 Kidney failure <15 (or dialysis) 42 THERAPEUTIC TARGET FOR THE TREATMENT OF DIABETES MELLITUS PATIENTS IS <7% HBA1C, AND IN SELECTIVE PATIENTS <6.0%. PLEASE REFER TO [place] [employer] DIABETIC CARE GUIDELINES FOR FURTHER INFORMATION. 43 Anion gap measurement may be of limited value in the presence of any alkalosis, especially in a combined acid base disorder. . 44 Because ethnic data is not always readily available, this report includes an eGFR for both -Americans and non- Americans. The National Kidney Disease Education Program (NKDEP) does not endorse the use of the MDRD equation for patients that are not between the ages of 18 and 70, are , have extremes of body size, muscle mass, or nutritional status, or are non- or non-. According to the National Kidney Foundation, irrespective of diagnosis, the stage of the disease is based on the level of kidney function: Stage Description GFR(mL/min/1.73 m(2)) 1 Kidney damage with normal or decreased GFR 90 2 Kidney damage with mild decrease in GFR 60-89 3 Moderate decrease in GFR 30-59 4 Severe decrease in GFR 15-29 5 Kidney failure <15 (or dialysis) 45 CHOLESTEROL INTERPRETATION: Desirable: Less than 200 MG/DL Borderline-High Risk: 200-239 MG/DL High-Risk: 240 MG/DL and over 46 HDL INTERPRETATION: Undesirable: High Risk: Less than 40 MG/DL Desirable: Low Risk: Greater than 60 MG/DL 47 LDL INTERPRETATION: Low Risk Optimal Level: LDL Less than 100 MG/DL Near or Above Optimal: LDL 100-129 MG/DL Borderline High Risk: LDL 130-159 MG/DL High Risk: LDL 160-189 MG/DL Very High Risk: LDL Greater than 189 MG/DL 48 CHOLESTEROL INTERPRETATION: Desirable: Less than 200 MG/DL Borderline-High Risk: 200-239 MG/DL High-Risk: 240 MG/DL and over 49 HDL INTERPRETATION: Undesirable: High Risk: Less than 40 MG/DL Desirable: Low Risk: Greater than 60 MG/DL 50 LDL INTERPRETATION: Low Risk Optimal Level: LDL Less than 100 MG/DL Near or Above Optimal: LDL 100-129 MG/DL Borderline High Risk: LDL 130-159 MG/DL High Risk: LDL 160-189 MG/DL Very High Risk: LDL Greater than 189 MG/DL 51 Anion gap measurement may be of limited value in the presence of any alkalosis, especially in a combined acid base disorder. . 52 Note change in reference range as of 12/11/07. The change was based on recommendations from the [place] [employer]. 53 Please note change in reference range effective 07 . 54 Because ethnic data is not always readily available, this report includes an eGFR for both -Americans and non- Americans. The National Kidney Disease Education Program (NKDEP) does not endorse the use of the MDRD equation for patients that are not between the ages of 18 and 70, are , have extremes of body size, muscle mass, or nutritional status, or are non- or non-. According to the National Kidney Foundation, irrespective of diagnosis, the stage of the disease is based on the level of kidney function: Stage Description GFR(mL/min/1.73 m(2)) 1 Kidney damage with normal or decreased GFR 90 2 Kidney damage with mild decrease in GFR 60-89 3 Moderate decrease in GFR 30-59 4 Severe decrease in GFR 15-29 5 Kidney failure <15 (or dialysis) 55 Test Performed by: [facility] of Lab Med and Pathology [address] [place] [id number] Gastroenterology Nurse: Renny Perez III, M.D. 56 Anion gap measurement may be of limited value in the presence of any alkalosis, especially in a combined acid base disorder. . 57 Note change in reference range as of 12/11/07. The change was based on recommendations from the [place] [employer]. 58 Please note change in reference range effective 07 . 59 CHOLESTEROL INTERPRETATION: Desirable: Less than 200 MG/DL Borderline-High Risk: 200-239 MG/DL High-Risk: 240 MG/DL and over 60 HDL INTERPRETATION: Undesirable: High Risk: Less than 40 MG/DL Desirable: Low Risk: Greater than 60 MG/DL 61 LDL INTERPRETATION: Low Risk Optimal Level: LDL Less than 100 MG/DL Near or Above Optimal: LDL 100-129 MG/DL Borderline High Risk: LDL 130-159 MG/DL High Risk: LDL 160-189 MG/DL Very High Risk: LDL Greater than 189 MG/DL 62 CALL RESULTS TO [phone] Recommended INR for Patients on Oral Anticoagulants Prophylaxis 2.0 - 3.0 Treatment of thrombosis 2.0 - 3.0 Prevention of embolism 2.0 - 3.0 Prevention of embolism from prosthetic heart valves 2.5 - 3.5 64 ATTENTION EFFECTIVE 09/01/08, THE IMPLEMENTATION OF NEW COAGULATION ANLAYZERS HAS CAUSED A SIGNIFICANT DIFFERENCE FOR PROTIME RESULTS IN SECONDS. THEREFORE, DIAGNOSIS,TREATMENT,AND THERAPY MUST BE BASED ON THE INR VALUE ONLY. AFTER SEPTEMBER 20, 2008, ONLY THE INR WILL BE REPORTED. 65 CHOLESTEROL INTERPRETATION: Desirable: Less than 200 MG/DL Borderline-High Risk: 200-239 MG/DL High-Risk: 240 MG/DL and over 66 HDL INTERPRETATION: Undesirable: High Risk: Less than 40 MG/DL Desirable: Low Risk: Greater than 60 MG/DL 67 LDL INTERPRETATION: Low Risk Optimal Level: LDL Less than 100 MG/DL Near or Above Optimal: LDL 100-129 MG/DL Borderline High Risk: LDL 130-159 MG/DL High Risk: LDL 160-189 MG/DL Very High Risk: LDL Greater than 189 MG/DL 68 Anion gap measurement may be of limited value in the presence of any alkalosis, especially in a combined acid base disorder. . 69 Note change in reference range as of 12/11/07. The change was based on recommendations from the [place] [employer]. 70 Please note change in reference range effective 07 . Procedures Date CPT Code Description Status 02/13/2017 37185 Electrocardiogram Complete Completed 02/09/2015 08459 Electrocardiogram Complete Completed 02/09/2014 93924 Electrocardiogram Complete Completed 02/06/2013 85121 Electrocardiogram Complete Completed 02/05/2012 27606 Electrocardiogram Complete Completed 02/05/2011 81883 Electrocardiogram Complete Completed 02/03/2010 41162 Electrocardiogram Complete Completed 08/30/2008 10949 Electrocardiogram Complete Completed 08/30/2008 45466 X-Ray Chest Two Views Completed Encounters Type Date Location Provider CPT E/M Dx Office Visit 02/13/2017 9:15a Main Office Riley Vargas M.D. 40921 I10 R73.01 I25.119 G56.00 E78.00 R63.4 R05 Z23 Office Visit 08/14/2016 10:00a Main Office Riley Vargas M.D. 55159 I10 I25.119 R73.01 G56.00 E78.00 Office Visit 02/07/2016 10:00a Main Office Riley Vargas M.D. 76498 R73.01 I10 I25.119 G56.00 Office Visit 08/10/2015 9:30a Main Office Riley Vargas M.D. 36065 I10 I25.119 R73.01 G56.00 M25.512 Office Visit 02/09/2015 11:00a Main Office Riley Vargas M.D. 50977 R73.01 I10 I25.119 Office Visit 08/10/2014 10:00a Main Office Riley Vargas M.D. 15903 786.59 401.1 414.00 272.0 354.0 724.4 Office Visit 05/10/2014 3:30p Main Office Riley Vargas M.D. 89171 366.9 V72.84 401.1 414.00 380.4 V65.49 Office Visit 02/09/2014 8:45a Main Office Riley Vargas M.D. 63049 401.1 414.00 272.0 790.21 433.10 354.0 Office Visit 08/10/2013 8:55a Main Office Riley Vargas M.D. 27233 401.1 354.0 414.00 272.0 790.21 433.10 Office Visit 02/06/2013 10:00a Main Office Riley Vargas M.D. 52877 401.1 790.21 354.0 414.00 272.0 443.9 780.79 Office Visit 08/05/2012 10:00a Main Office Riley Vargas M.D. 78792 354.0 401.1 414.00 780.79 272.0 Office Visit 02/05/2012 9:30a Main Office Riley Vargas M.D. 41137 401.1 272.0 790.21 414.00 433.10 354.0 Office Visit 08/07/2011 11:00a Main Office Riley Vargas M.D. 53296 414.00 401.1 790.21 354.0 719.43 272.0 Office Visit 02/05/2011 9:30a Main Office Riley Vargas M.D. 01931 414.00 401.1 790.21 354.0 Office Visit 08/04/2010 2:45p Main Office Riley Vargas M.D. 20937 414.00 401.1 272.0 790.21 433.10 354.0 Office Visit 02/03/2010 9:30a Main Office Riley Vargas M.D. 83479 414.00 272.0 401.1 790.21 433.10 Office Visit 08/03/2009 9:15a Main Office Riley Vargas M.D. 39152 414.00 272.0 401.1 790.21 433.10 Office Visit 02/22/2009 10:00a Main Office Riley Vargas M.D. 15040 414.00 272.0 401.1 790.21 433.10 790.09 V65.49 Office Visit 10/20/2008 9:30a Main Office Riley Vargas M.D. 64232 414.00 272.0 401.1 790.21 433.10 790.09 V65.49 V76.51 V03.82 V06.5 V07.2 Office Visit 09/15/2008 9:30a Main Office Riley Vargas M.D. 64192 414.00 272.0 401.1 790.21 433.10 790.09 Office Visit 08/30/2008 10:45a Main Office Riley Vargas M.D. 70289 786.50 413.9 796.2 272.0 433.10 Plan of Care Future Appointment(s):08/27/2017 9:30 am - Riley Vargas M.D. at Main [facility]6/26/2017 - Riley Vargas M.D.R47.01 AphasiaComments:appears to have an isolated expressive aphasia, suspicious for stroke, although the early course wc was waxing/waning is atypical. Needs urgent brain MRI. I called Dr Brown and advised her of what was going on, and she agreed that he needed an urgent brain MRI. Pt being sent to ER for this, Min to drive him. I also called [facility] and spoke to charge nurse (Louann) and advised her of this.
--- NOTE | 2017-06-26 20:59 | RAD ---
Indication: Slurred speech. Image sequences: Sagittal and axial T1, axial T2, FLAIR, diffusion and susceptibility weighted images of the brain were obtained. Ventricular structures are midline. No midline shift is noted. There is central and cortical atrophy noted. There is cortical restriction of diffusion in the precentral gyrus. This appears to represent an acute infarct. Additionally there may be small punctate area of restriction of diffusion involving the left inferior frontal gyrus. Chronic ischemic White matter change is noted. Areas of gliosis are noted on the FLAIR images. Brainstem and posterior fossa are otherwise unremarkable. Mastoid air cells and paranasal sinuses are otherwise unremarkable. 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 Atrophy and chronic ischemic white matter changes are also present.
--- NOTE | 2017-06-26 21:45 | ED ---
Avery Cervantes Julia, scribed for Mike Berumen MD on 06/26/17 at 1750 . Neurological HPI - HPI Summary HPI Summary: This patient is a 82 year old M presenting to [facility] accompanied by his due to the sudden difficulty to speak beginning 05/27/17. reporst that he regained the ability to speak normally after a few hours but returned yesterday afternoon and has persisted since then. She states he is able to understand written and spoken word but has difficulty forming sentences. She denies any other weakness or neurological impairment. Patient denies headache. Patient receives chemotherapy for lung cancer. reports he typically takes 25mg of ASA daily but will stop five days before any chemotherapy. - History of Current Complaint Chief Complaint: EDNeurologicalDeficit Stated Complaint: ?STROKE/SPEECH PROBLEMS Hx Obtained From: Patient, Family/Intelligence Operations Specialist Hx From Patient Unobtainable Due To: Other - speech impairment Onset/Duration: Sudden Onset, Started days ago, Still Present Timing: Constant Neurological Deficit Location: Generalized - speech impairment Pain Intensity: 0 - Allergy/Home Medications Allergies/Adverse Reactions: Allergies Allergy/AdvReac Type Severity Reaction Status Date / Time No Known Allergies Allergy Verified 04/18/17 14:11 Home Medications: Home Medications Aspirin TAB* [Aspirin 325 MG TAB*] 325 mg PO DAILY PRN 06/26/17 [History Confirmed 06/26/17] Cyanocobalamin TAB* [Vitamin B12 TAB*] 500 mcg PO DAILY 06/26/17 [History Confirmed 06/26/17] Dexamethasone TAB* [Decadron TAB*] 4 mg PO DAILY 06/26/17 [History Confirmed 11/06] Folic Acid TAB* [Folvite TAB*] 1 mg PO DAILY 06/26/17 [History Confirmed ] Metoprolol Succinate XL TAB* [Toprol XL TAB*] 25 mg PO DAILY 06/26/17 [History Confirmed 06/26/17] Nitroglycerin TAB 0.4 MG* 0.4 mg SL Q5M PRN 06/26/17 [History Confirmed 06/26/17 ] Rosuvastatin (NF) [Crestor (NF)] 20 mg PO DAILY 06/26/17 [History Confirmed 11/06] Vitamin B Complex TAB* [Complex B-100*] 1 tab PO DAILY 06/26/17 [History Confirmed 06/26/17] PMH/Surg Hx/FS Hx/Imm Hx Endocrine/Hematology History: Denies: Hx Diabetes Cardiovascular History: Reports: Hx Angina - PRN NITROSTAT, Hx Coronary Artery Disease, Hx Hypertension Denies: Hx Pacemaker/ICD History: Denies: Hx Dialysis, Hx Renal Disease Musculoskeletal History: Reports: Hx Arthritis, Other Musculoskeletal History - PINCHED NERVE IN BACK Sensory History: Reports: Hx Cataracts - BILATERAL, Hx Contacts or Glasses - GLASSES Denies: Hx Hearing Aid Opthamlomology History: Reports: Hx Cataracts - BILATERAL, Hx Contacts or Glasses - GLASSES Neurological History: Reports: Other Neuro Impairments/Disorders - NO SENSE OF SMELL Psychiatric History: Denies: Hx Panic Disorder - Cancer History Cancer Type, 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, Hx Chemotherapy: No Hx Radiation Therapy: No - Surgical History Surgery Procedure, Year, and Place: AGE 12 TONSILLECTOMY, BILAT CATARACT Hx Anesthesia Reactions: No Infectious Disease History: No Infectious Disease History: Denies: Traveled Outside the [place] in Last 30 Days - Social History Alcohol Use: Daily Alcohol Amount: 2-3 DRINKS DAILY Substance Use Type: Reports: None Smoking Status (MU): Former Smoker Amount Used/How Often: 1 PPD X 15 YEARS Have You Smoked in the Last Year: No Review of Systems Negative: Fever Cardiovascular: Other Positive: Other Respiratory: Negative, Other Gastrointestinal: Negative Genitourinary: Negative Musculoskeletal: Negative Positive: Arthralgia Skin: Negative Positive: Slurred Speech - difficulty forming sentences. Negative: Headache, Weakness Psychological: Normal All Other Systems Reviewed And Are Negative: Yes Physical Exam - Summary Physical Exam Summary: Appearance: Well appearing, no pain distress Skin: warm, dry, reflects adequate perfusion Head/face: normal Eyes: EOMI, ROJELIO ENT: normal Neck: supple, non-tender Respiratory: CTA, breath sounds present Cardiovascular: RRR, pulses symmetrical Abdomen: non-tender, soft Bowel: present Musculoskeletal: normal, strength/ROM intact Neuro:, sensory motor intact, A&Ox3, expressive aphasia, paranomia anomia, decreased fine motor movements on the left side, understands and follows commands Triage Information Reviewed: Yes Vital Signs On Initial Exam: Initial Vitals Temp Pulse Resp BP Pulse Ox 97.8 F 60 15 103/62 98 06/26/17 17:31 06/26/17 17:31 18 17:31 18 17:31 06/26/17 17:31 Vital Signs Reviewed: Yes Diagnostics - Vital Signs Vital Signs Temp Pulse Resp BP Pulse Ox 06/26/17 17:31 97.8 F 60 15 103/62 98 - Laboratory Lab Results: Lab Results 06/26/17 06/26/17 Range/Units 18:06 18:06 WBC 3.5 (3.5-10.8) 10^3/ul RBC 2.39 L (4.0-5.4) 10^6/ul Hgb 7.7 L (14.0-18.0) g/dl Hct 23 L (42-52) % MCV 95 H (80-94) fL MCH 32 H (27-31) pg MCHC 34 (31-36) g/dl RDW 22 H (10.5-15) % Plt Count 98 L (150-450) 10^3/ul MPV 7 L (7.4-10.4) um3 Neut % (Auto) 80.7 (38-83) % Lymph % (Auto) 3.9 L (25-47) % Gilliam % (Auto) 15.3 H (0-7) % Eos % (Auto) 0 (0-6) % Baso % (Auto) 0.1 (0-2) % Absolute Neuts (auto) 2.9 (1.5-7.7) 10^3/ul Absolute Lymphs (auto) 0.1 L (1.0-4.8) 10^3/ul Absolute Monos (auto) 0.5 (0-0.8) 10^3/ul Absolute Eos (auto) 0 (0-0.6) 10^3/ul Absolute Basos (auto) 0 (0-0.2) 10^3/ul Absolute Nucleated RBC 0 10^3/ul Nucleated RBC % 0 Sodium 138 (133-145) mmol/L Potassium 4.0 (3.5-5.0) mmol/L Chloride 105 (101-111) mmol/L Carbon Dioxide 29 (22-32) mmol/L Anion Gap 4 (2-11) mmol/L BUN 27 H (6-24) mg/dL Creatinine 0.89 (0.67-1.17) mg/dL Est GFR ( Amer) 105.8 (>60) Est GFR (Non-Af Amer) 82.2 (>60) BUN/Creatinine Ratio 30.3 H (8-20) Glucose 88 (70-100) mg/dL Calcium 9.0 (8.6-10.3) mg/dL Total Bilirubin 0.40 (0.2-1.0) mg/dL AST 29 (13-39) U/L ALT 20 (7-52) U/L Alkaline Phosphatase 68 (34-104) U/L Total Protein 6.2 L (6.4-8.9) g/dL Albumin 3.4 (3.2-5.2) g/dL Globulin 2.8 (2-4) g/dL Albumin/Globulin Ratio 1.2 (1-3) Result Diagrams: 06/26/17 18:06 06/26/17 18:06 Lab Statement: Any lab studies that have been ordered have been reviewed, and results considered in the medical decision making process. - CT Brain CT CT Interpretation Completed By: Radiologist - Age-appropriate atrophy. No definite intracranial mass or hemorrhage is noted. ED Physician has reviewed this report. - EKG 181 Cardiac Rate: NL - at 60 BPM EKG Rhythm: Sinus Rhythm EKG Interpretation: RBBB Course/Dx - Course Course Of Treatment: Patient remained with expressive aphasia. 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 Patient given one aspirin 325 mg , follow up with primary doctor. refuses hospitalization for further evaluation - Differential Dx Differential Diagnoses Neuro: Positive: Cerebrovascular Accident - CVA ACUTE WITH EXPRESSIVE APHASIA, ANEMIA - Diagnoses Provider Diagnoses: Expressive aphasia syndrome Discharge - Discharge Plan Condition: Guarded Disposition: AGAINST MEDICAL ADVICE Patient Education Materials: Anomic Aphasia Exercises (DC), Carotid Artery Disease (DC), Stroke (DC) Referrals: Riley Vargas MD [Primary Care Provider] - The documentation as recorded by the Avery [email or web address] Julia accurately reflects the service I personally performed and the decisions made by me, Mike Berumen MD.
[2017-06-26] MEDS ORDERED: Aspirin TAB* 325 MG PO ONE (21:49)
[2017-06-26 22:13] VITALS: BP 96/55
== END 2017-06-26 22:13 | disposition left against medical advice (07) ==
LOC: ED 17:22
DX: I63.9 Cerebral infarction, unspecified (principal); R47.01 Aphasia; Z87.891 Personal history of nicotine dependence
CPT/HCPCS: 36415; 70450; 70551; 80053; 85025; 93005; 99284

== ENCOUNTER 2017-07-16 00:57 | Inpatient (IN) | payer MEDICARE, BC ==
--- OUTSIDE RECORDS SUMMARY | 2017-07-16 01:06 | XMS REPORT ---
:1935 External Reference #:[id number] Author Organization [facility] Address [address] [place] [id number] Phone [phone] Care Team Providers Name Role Phone HCP/LW on file Primary Care Physician Unavailable Payers Type Date Identification Numbers Payment Provider Subscriber Medicare Primary Effective: Policy Number: [facility] Juan J Moody 2002 [id number] Services PayID: [id number] [address] [place] [address] Medigap Part B Policy Number: [id number] Kassy Moody Group Number: [id number] [address] PayID: [id number] [place] [address] Problems Date Description Provider Status Onset: 02/03/2010 Coronary arteriosclerosis Riley Vargas M.D. Active Onset: 02/03/2010 Pure hypercholesterolemia Riley Vargas M.D. Active Onset: 02/03/2010 Benign essential hypertension Riley Vargas M.D. Active Onset: 02/03/2010 Impaired fasting glycaemia Riley Vargas M.D. Active Onset: 02/03/2010 Carotid artery occlusion Riley Vargas M.D. Active Onset: 02/06/2013 Carpal tunnel syndrome Riley Vargas M.D. Active Onset: 02/09/2015 Athscl heart disease of [place] Riley Vargas M.D. 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 Cigarette Use 02/09/2014 Former Cigarette Smoker quit in his 40s. Was a 1ppd smoker ETOH Use Current Alcohol Use: Daily 1/2 bottle of wine/day Allergies, Adverse Reactions, Alerts Date Description Reaction Status Severity Comments 08/03/2009 NKDA active Medications Medication Date Status Form Strength Qnty SIG Indications Ordering Provider Alprazolam 06/28/ Active Tablets 0.5mg 30tabs 1/2-1 tablet F41.9 Adeolacolito2017 by mouth Riley, every 6hrs M.D. as needed for anxiety; may take 30 min prior to anxiety provoking situations Nitroglycerin 06/25/ Active Tablets 0.4mg 25tabs Dissolve One I25.10 Alicia 2017 Sub Tablet Under Riley, The Tongue M.D. as Needed For Chest Pain. May Repeat [...] take one E78.00 Silcoff, Calcium tablet by Riley, mouth once M.D. daily for high cholesterol Vitamins B 08/30/2008 Active Tablets Silcoff, Complex Arpan Lin Clonazepam 04/16/2017 - Hx Tablets 0.5mg 2tabs 1 by mouth Alicia, 04/18/2017 30-60min Riley, prior to M.D. planned mri; may repeat after 1 hour if needed Levofloxacin 02/15/2017 - Hx Tablets 750mg 10tabs 1 by mouth Silcoff, 02/25/2017 every day for Riley, pneumonia M.D. Nitrostat 10/20/2012 - Hx Tablets 0.4mg 25tabs take one I25.10 Silcoff, 06/25/2017 Sub tablet by jackson Lin for M.D. chest pain may repeat after 5 minutes. max of 3 doses PT For L Wrist 08/07/2011 - Hx please 719.43 Silyordan, Pain And Bilat 02/04/2012 evaluate and Riley [...] - Hx 1000mg 2 po QDay 272.0 Jag, 01/29/2012 MD Liane Asa 08/30/2008 - Hx Capsules Silcoff, 02/02/2011 Arpan Lin Centrum 08/30/2008 - Hx Tablets 1 po qd [place]colito, 05/09/2014 Arpan Lin Aspirin 08/30/2008 - Hx Tablets 81mg 0ta 1 qd for heart I25.119 Silcolito , (Ec) 02/07/2016 bs Arpan Lin I25.10 [...] CPT Code Status Date Vaccine Lot # [id number] Given 10/20/2008 Pneumococcal Immunization [id number] [id number] Given 10/20/2008 Td Immunization [id number] Refused 02/13/2017 Influenza Virus Vaccine, Quadrivalent, Split, Preservative Free 28119 Refused 02/09/2015 Prevnar 13 [id number] Refused 05/10/2014 Adacel or Boostrix, TDaP 39862 Refused 02/05/2011 Flu, Split Virus 3Yrs 78995 Refused 02/03/2010 Flu, Split Virus 3Yrs 32235 Refused 02/22/2009 Zostavax Vital Signs Date Vital Result Comment 07/06/2017 BP Systolic 96 mmHg BP Diastolic 58 mmHg Weight 162.00 lb 06/26/2017 BP Systolic 96 mmHg BP Diastolic [...] >60 3 Laboratory test finding 04/08/2017 Cytology Non-Travel Counselor SEE RESULT BELOW 4 Platelet Count 04/08/2017 [...] Laboratory test finding 02/04/2017 Alt 13 U/L - 14 Basic Metabolic Panel 02/04/2017 Sodium 137 [...] 16 Ua Ketones - 16 Ua Specific [place] 1.030 16 Ua Blood - 16 Ua [...] test finding 02/02/2016 Alt (SGPT) 22 U/L - 18 Lipid Profile (Trig/Chol/HDL) 02/02/2016 Triglycerides 85 mg/dL 19 Cholesterol 175 mg/dL 20 HDL Cholesterol 56.5 mg/dL 21 LDL Cholesterol 102 mg/dL 22 Urine Micro Inhouse 02/09/2015 Ua WBC 0-2 Ua RBC 0-3 Ua Epi 0-2 Ua Specific [place] 1.020 Ua PH 5.0 Laboratory test finding [...] test finding 02/04/2015 Alt (SGPT) 31 U/L 7- Lipid Profile (Trig/Chol/HDL) 02/04/2015 Triglycerides 70 mg/dL 24 Cholesterol 171 mg/dL 25 HDL Cholesterol 59.6 mg/dL 26 LDL Cholesterol 97 mg/dL 27 Urine Micro Inhouse 05/10/2014 Ua WBC 6-7 Ua RBC - Ua Casts - Ua Epi 7-8 Ua Other mucous, sediment Ua Glucose - Ua Bilirubin - Ua Ketones - Ua Specific [place] 1.025 Ua Blood - Ua PH 6.0 Ua Protein - Ua Urobilinogen - Ua Nitrite - Ua Leukocytes - Lipid Profile (Trig/Chol/HDL) 02/10/2014 Triglycerides 66 mg/dL 28 Cholesterol 159 mg/dL 29 HDL Cholesterol 55.7 mg/dL 30 LDL Cholesterol 90 mg/dL 31 Laboratory test finding 02/10/2014 Alt 29 U/L 7- Basic Metabolic Panel 02/10/2014 Sodium 137 mmol/L [...] Bilirubin - Ua Ketones - Ua Specific [place] 1.010 Ua Blood - Ua PH 5.0 [...] Bilirubin - Ua Ketones - Ua Specific [place] 1.010 Ua Blood - Ua PH 6.5 [...] SEE RESULT BELOW Name: JUAN J MOODY Odin : [address]: Riley Vargas MD Acct: [id number] Unit: [id number] AGE: 81 Location: Re04/08/17 SEX: M Status: REG REF SPEC: [id number] MARIA ESTHER: 04/08/17-1155 [facility] DR: Riley Vargas MD REQ: [id number] RECD: 04/08/171220 STATUS: KALYAN YAN DR: Zachery [...] performed at Main Lab DEPARTMENT OF PATHOLOGY, [address] [place] [address] Marcial Roth M.D. Director [facility] # [id number] RUN DATE: 04/09/17 [facility] LAB LIVE PAGE 2 Patient: JUAN J MOODY [id number] (Continued) CLINICAL HISTORY (Continued) CLINICAL HISTORY 6.8 cm right upper lobe mass. IMMEDIATE INTERPRETATION Pass 1-adequate, pass 2-inadequate, pass 3 4-adequate. GROSS DESCRIPTION CT Guided, fine needle aspiration x 4 passes with 3 Alcohol fixed slide(s) and 2 needle rinse in formalin for cell blocks labeled [id number] and [id number]. Signed (signature on file) Marcial Roth MD [id number] END OF REPORT * ML=Testing performed at Main Lab DEPARTMENT OF PATHOLOGY, [address] [place] [address] Marcial Roth M.D. Director [facility] # [id number] 5 R UPPER LOBE LUNG FNA 6 SEE RESULT BELOW Name: JUAN J MOODY Odin : [address]: Riley Vargas MD Acct: [id number] Unit: [id number] AGE: 81 Location: Re04/08/17 SEX: M Status: REG REF SPEC: [id number] MARIA ESTHER: 04/08/17-[address]: Riley Vargas MD REQ: [id number] RECD: 04/08/17 STATUS: COMP _ SOURCE: TISSUE SPDESC:RT UPP [...] mycobacterial culture. * ML - MAIN LAB (PSC1) . END OF REPORT * ML=Testing performed at Main Lab DEPARTMENT OF PATHOLOGY, [address] [place] [address] Marcial Roth M.D. Director [facility] # [id number] SOURCE: LUNG, FNA R UPPER LOBE LUNG Mycobacteria specimen plated for culture, volume inadequate for optimal recovery. MYCOBACTERIAL CULTURE FINAL No growth after 60 days of incubation. Test Performed by: [address] [id number] 8 Please note the change in INR [...] IN SELECTIVE PATIENTS <6.0%. PLEASE REFER TO [place] [employer] DIABETIC CARE GUIDELINES FOR FURTHER [...] change was based on recommendations from the [place] [employer]. 53 Please note change in [...] <15 (or dialysis) 55 Test Performed by: [facility] Dpt of Lab Med and Pathology [address] [place] [address] [employer]: Renny Perez III, M.D. 56 Anion gap measurement may be of limited value in the presence of any alkalosis, especially in a combined acid base disorder. . 57 Note change in reference range as of 12/11/07. The change was based on recommendations from the [place] [employer]. 58 Please note change in [...] than 189 MG/DL 62 CALL RESULTS TO 4188 63 Recommended INR for Patients on Oral [...] change was based on recommendations from the [place] [employer]. 70 Please note change in reference range effective 07 . Procedures Date CPT Code Description Status 02/13/2017 83258 Electrocardiogram Complete Completed 02/09/2015 77493 Electrocardiogram Complete Completed 02/09/2014 09039 Electrocardiogram Complete Completed 02/06/2013 86228 Electrocardiogram Complete Completed 02/05/2012 92215 Electrocardiogram Complete Completed 02/05/2011 65450 Electrocardiogram Complete Completed 02/03/2010 38466 Electrocardiogram Complete Completed 08/30/2008 65190 Electrocardiogram Complete Completed 08/30/2008 23197 X-Ray Chest Two Views Completed Encounters Type Date Location Provider CPT E/M Dx Office Visit 07/06/2017 10:15a Main Office Riley Vargas M.D. 91167 R47.01 D64.9 F41.9 I63.9 I69.320 Office Visit 06/26/2017 3:30p Main Office Riley Vargas M.D. 33060 R47.01 R29.818 C34.11 Z92.21 Office Visit 02/13/2017 9:15a Main Office Riley Vargas M.D. 83052 I10 R73.01 I25.119 G56.00 E78.00 R63.4 R05 Z23 Office Visit 08/14/2016 10:00a Main Office Riley Vargas M.D. 82959 I10 I25.119 R73.01 G56.00 E78.00 Office Visit 02/07/2016 10:00a Main Office Riley Vargas M.D. 06050 R73.01 I10 I25.119 G56.00 Office Visit 08/10/2015 9:30a Main Office Riley Vargas M.D. 21704 I10 I25.119 R73.01 G56.00 M25.512 Office Visit 02/09/2015 11:00a Main Office Riley Vargas M.D. 50896 R73.01 I10 I25.119 Office Visit 08/10/2014 10:00a Main Office Riley Vargas M.D. 42491 786.59 401.1 414.00 272.0 354.0 724.4 Office Visit 05/10/2014 3:30p Main Office Riley Vargas M.D. 58564 366.9 V72.84 401.1 414.00 380.4 V65.49 Office Visit 02/09/2014 8:45a Main Office Riley Vargas M.D. 06470 401.1 414.00 272.0 790.21 433.10 354.0 Office Visit 08/10/2013 8:55a Main Office Riley Vargas M.D. 47031 401.1 354.0 414.00 272.0 790.21 433.10 Office Visit 02/06/2013 10:00a Main Office Riley Vargas M.D. 35332 401.1 790.21 354.0 414.00 272.0 443.9 780.79 Office Visit 08/05/2012 10:00a Main Office Riley Vargas M.D. 95882 354.0 401.1 414.00 780.79 272.0 Office Visit 02/05/2012 9:30a Main Office Riley Vargas M.D. 91478 401.1 272.0 790.21 414.00 433.10 354.0 Office Visit 08/07/2011 11:00a Main Office Riley Vargas M.D. 60410 414.00 401.1 790.21 354.0 719.43 272.0 Office Visit 02/05/2011 9:30a Main Office Riley Vargas M.D. 95440 414.00 401.1 790.21 354.0 Office Visit 08/04/2010 2:45p Main Office Riley Vargas M.D. 45113 414.00 401.1 272.0 790.21 433.10 354.0 Office Visit 02/03/2010 9:30a Main Office Riley Vargas M.D. 48017 414.00 272.0 401.1 790.21 433.10 Office Visit 08/03/2009 9:15a Main Office Riley Vragas M.D. 92803 414.00 272.0 401.1 790.21 433.10 Office Visit 02/22/2009 10:00a Main Office Riley Vargas M.D. 93290 414.00 272.0 401.1 790.21 433.10 790.09 V65.49 Office Visit 10/20/2008 9:30a Main Office Riley Vargas M.D. 57952 414.00 272.0 401.1 790.21 433.10 790.09 V65.49 V76.51 V03.82 V06.5 V07.2 Office Visit 09/15/2008 9:30a Main Office Riley Vargas M.D. 93848 414.00 272.0 401.1 790.21 433.10 790.09 Office Visit 08/30/2008 10:45a Main Office Riley Vargas M.D. 48201 786.50 413.9 796.2 272.0 433.10 Plan of Care Future Appointment(s):08/27/2017 9:30 am - Riley Vargas M.D. at Main Gfhpal7607/06/2017 - Riley Vargas M.D.R47.01 AphasiaComments:speech apraxia sec to CVA. Improving. Speech Tx gzunypikE76.9 Anemia, unspecifiedComments:He is agreeable to considering transfusion. I will contact Dr Brown at the beginning of the week to discuss it.F41.9 Anxiety disorder, mqsytkonspeR05.9 Cerebral infarction, rweyczglaneR89.320 Aphasia following cerebral infarction
[2017-07-16] MEDS ORDERED: NS 0.9% 1000 ML* 2,000 ML IV ONE (01:07)
[2017-07-16 02:00] LABS: EGFR Non-African American 68.7 (>60)
[2017-07-16 02:01] LABS: INR 1.15 (0.77-1.02)
[2017-07-16 02:11] LABS: ABS Basophils 0 10^3/ul (0-0.2); ABS Eosinophils 0 10^3/ul (0-0.6); ABS Lymphocytes 0.2 10^3/ul (1.0-4.8); ABS Monocytes 0.6 10^3/ul (0-0.8); ABS Neutrophils 2.1 10^3/ul (1.5-7.7); ABS Nucleated RBC 0 10^3/ul; Eosinophil % 0.7 % (0-6); Hematocrit 24 % (42-52); Mean Corpuscular HGB Conc 34 g/dl (31-36); Mean Corpuscular Hemoglobin 33 pg (27-31); Mean Corpuscular Volume 98 fL (80-94); Mean Platelet Volume 8.5 um3 (7.4-10.4); Nucleated Red Blood Cells % 0.5; Platelet Count 51 10^3/ul (150-450); Red Blood Count 2.43 10^6/ul (4.0-5.4); Red Cell Distribution Width 26 % (10.5-15); White Blood Count 2.9 10^3/ul (3.5-10.8)
[2017-07-16] MEDS ORDERED: Norepinephrine 16MCG/ML IVPRE* 4,000 MCG/250 ML BAG IV ONE (02:20)
[2017-07-16] MEDS ORDERED: Piperacillin/Tazobac ADVAN(*) 3.375 GM in NS 0.9% 100 ML* 100 ML IVPB ONE (02:21)
[2017-07-16 02:38] LABS: Monocytes % 14 % (0-7)
[2017-07-16] MEDS ORDERED: Vancomycin(*) 1,000 MG VIAL IVPB SCH (03:00)
[2017-07-16] MEDS ORDERED: Vancomycin(*) 1,250 MG IV x ONCE IVPB ONE ×2 (03:30)
[2017-07-16] MEDS ORDERED: NS 0.9% 250 ML* 246 ML with Norepinephrine VIAL* 4 MG IV SCH ×2 (03:30)
--- NOTE | 2017-07-16 04:23 | HP ---
H&P (Free Text) History and Physical: PCP: Sherine Vargas MD Oncology: Silas Brown MD Radiation Oncology: Silas López MD Date/Time: 07/16/2017 0420 CC: fever HPI: Mr Moreno is an 82YO male HX squamous cell lung CA completed radio-TX, receiving chemo-TX who went for chemo-TX yesterday, but was unable to receive 2nd low counts. Per his he received 2 units pRBCs & platelets which did not help his low systolic in the 70s and so he was sent home with follow up tomorrow. After arriving home around 1930, he developed shaking rigors and his found his temperature to be 102F for which she called Silas Brown MD and was referred to [facility] for further evaluation. He reports some SOB worse lying down, a 12 pound weight gain over the last 2 weeks, intermittent chest discomfort which he has difficulty characterizing. He admits to chills, but no subjective fevers or sweats. He has known CAD from a cardiac cath in 2008 showing an occluded LAD with faint collaterals. He remains hypotensive with systolics in the 70s, tachypneic in the low- to mid- 20s, tachycardia in the low 100s, WBCs 2.9, HGB 8.0, 51k platelets, troponin 4.24, & BNP of 1300. CXR shows a R basilar infiltrate and diffuse congestion. ED MD will place a central line and norepinephrine GTT will be started to treat his septic shock. He has received vancomycin & piperacillin/tazobactam from the ED along with 2L NS. Clinically, Mr Moreno appears to be in septic shock from a RLL healthcare associated pneumonia precipitating an NSTEMI w/ secondary CHF. ED reviewed the case with oncology who advised against aspirin, but allowed the use of heparin. I reviewed the case with Silas Webber MD cardiology who recommended fluids, if he could tolerate, an ECHO in the AM and he will arrange evaluation. PMedHx squamous cell lung CA on chemo-TX, completed radio-TX CAD w/ occluded LAD & faint collaterals from cath 2008 TIA/CVA peripheral polyneuropathy, chemo-TX related HTN HLD Ambulatory Orders Nursing to reconcile. Aspirin TAB* [Aspirin 325 MG TAB*] 325 mg PO DAILY PRN 06/26/17 Cyanocobalamin TAB* [Vitamin B12 TAB*] 500 mcg PO DAILY 06/26/17 Dexamethasone TAB* [Decadron TAB*] 4 mg PO DAILY 06/26/17 Folic Acid TAB* [Folvite TAB*] 1 mg PO DAILY 06/26/17 Metoprolol Succinate XL TAB* [Toprol XL TAB*] 25 mg PO DAILY 06/26/17 Nitroglycerin TAB 0.4 MG* 0.4 mg SL Q5M PRN 06/26/17 Rosuvastatin (NF) [Crestor (NF)] 20 mg PO DAILY 06/26/17 Vitamin B Complex TAB* [B Complex-50*] 1 tab PO DAILY 06/26/17 Allergies No Known Allergies Allergy (Verified 04/18/17 14:11) PSurgHx tonsillectomy OU cataract extractions SocHx: quit smoking ~40 years ago, no alcohol or recreational drugs; lives with his ; 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; DNR code status FamHx: reviewed, non-contributory to clinical situation ROS: as above, otherwise reviewed and all were negative vitals: Vital Signs Temp 38.3 C 07/16/17 03:35 Pulse 108 07/16/17 05:02 Resp 20 07/16/17 05:09 BP 88/57 07/16/17 05:02 Pulse Ox 96 07/16/17 05:02 Intake & Output 07/15/17 07/15/17 07/16/17 11:59 23:59 11:59 Intake Total 2100 Balance 2100 Weight 77.111 kg Intake: IV Fluids 2100 Constitutional: NAD, normally developed, well-nourished elderly white male HEENM: atraumatic; sclera/conjunctiva: anicteric/clear; hearing: clinically mildly decreased; oropharynx: clear, moist Neck: soft tissue: non-tender; thyroid: normal Pulmonary: bibasilar fine crackles with coarse crackles in R base, fair aeration , no accessory muscle use CV: TR/RR, normal S1S2, no carotid bruit, jugular venous distention 1/2 way to angle of mandible at 45 degrees, 2+ B DP/PT, trace edema Abdominal: soft, non-distended, non-tender, no rebound/guarding/rigidity, normoactive bowel sounds, no hepatosplenomegaly or masses, no costovertebral angle tenderness Musculoskeletal: general: grossly intact, no tenderness to palpation Integumental: normal appearance and texture of exposed skin Psychiatric orientation: AA&O to PPS affect: calm mood: cooperative eye contact: fair content: reliable responses: timely insight: fair Testing: Lab Results 07/16/17 07/16/17 07/16/17 Range/Units 01:27 01:27 01:27 WBC 2.9 L (3.5-10.8) 10^3/ul RBC 2.43 L (4.0-5.4) 10^6/ul Hgb 8.0 L (14.0-18.0) g/dl Hct 24 L (42-52) % MCV 98 H (80-94) fL MCH 33 H (27-31) pg MCHC 34 (31-36) g/dl RDW 26 H (10.5-15) % Plt Count 51 L (150-450) 10^3/ul MPV 8.5 (7.4-10.4) um3 Neut % (Auto) 71.4 (38-83) % Lymph % (Auto) 7.0 L (25-47) % Rogers % (Auto) 20.5 H (0-7) % Eos % (Auto) 0.7 (0-6) % Baso % (Auto) 0.4 (0-2) % Absolute Neuts (auto) 2.1 (1.5-7.7) 10^3/ul Absolute Lymphs (auto) 0.2 L (1.0-4.8) 10^3/ul Absolute Monos (auto) 0.6 (0-0.8) 10^3/ul Absolute Eos (auto) 0 (0-0.6) 10^3/ul Absolute Basos (auto) 0 (0-0.2) 10^3/ul Absolute Nucleated RBC 0 10^3/ul Immature Gran % 4 (0-9) % Neutrophils % 75 (38-83) % Band Neutrophils % 1 (0-8) % Lymphocytes % 6 L (25-47) % Monocytes % 14 H (0-7) % Eosinophils % 1 (0-6) % Basophils % 0 (0-2) % Metamyelocytes % 3 H (0-2) % Nucleated RBC % 0.5 Abs Neuts (Manual) 2.2 (1.5-7.7) 10^3/ul Abs Lymphs (Manual) 0.2 L (1.0-4.8) 10^3/ul Abs Monocytes (Manual) 0.4 (0-0.8) 10^3/ul Absolute Eos (Manual) 0 (0-0.6) 10^3/ul Abs Basophils (Manual) 0 (0-0.2) 10^3/ul Normal RBC Morphology Not Reportable Anisocytosis 1+ INR (Anticoag Therapy) (0.77-1.02) APTT (26.0-36.3) seconds Sodium 135 (133-145) mmol/L Potassium 3.8 (3.5-5.0) mmol/L Chloride 106 (101-111) mmol/L Carbon Dioxide 22 (22-32) mmol/L Anion Gap 7 (2-11) mmol/L BUN 22 (6-24) mg/dL Creatinine 1.04 (0.67-1.17) mg/dL Est GFR ( Amer) 88.4 (>60) Est GFR (Non-Af Amer) 68.7 (>60) BUN/Creatinine Ratio 21.2 H (8-20) Glucose 105 H (70-100) mg/dL Lactic Acid 1.3 (0.5-2.0) mmol/L Calcium 8.9 (8.6-10.3) mg/dL Total Bilirubin 0.80 (0.2-1.0) mg/dL AST 42 H (13-39) U/L ALT 17 (7-52) U/L Alkaline Phosphatase 60 (34-104) U/L Troponin I 4.24 H* (<0.04) ng/mL B-Natriuretic Peptide ( - 100) pg/mL Total Protein 5.9 L (6.4-8.9) g/dL Albumin 3.3 (3.2-5.2) g/dL Globulin 2.6 (2-4) g/dL Albumin/Globulin Ratio 1.3 (1-3) Influenza A (Rapid) (Negative) Influenza B (Rapid) (Negative) 07/16/17 07/16/17 07/16/17 Range/Units 01:27 01:27 04:59 WBC (3.5-10.8) 10^3/ul RBC (4.0-5.4) 10^6/ul Hgb (14.0-18.0) g/dl Hct (42-52) % MCV (80-94) fL MCH (27-31) pg MCHC (31-36) g/dl RDW (10.5-15) % Plt Count (150-450) 10^3/ul MPV (7.4-10.4) um3 Neut % (Auto) (38-83) % Lymph % (Auto) (25-47) % Rogers % (Auto) (0-7) % Eos % (Auto) (0-6) % Baso % (Auto) (0-2) % Absolute Neuts (auto) (1.5-7.7) 10^3/ul Absolute Lymphs (auto) (1.0-4.8) 10^3/ul Absolute Monos (auto) (0-0.8) 10^3/ul Absolute Eos (auto) (0-0.6) 10^3/ul Absolute Basos (auto) (0-0.2) 10^3/ul Absolute Nucleated RBC 10^3/ul Immature Gran % (0-9) % Neutrophils % (38-83) % Band Neutrophils % (0-8) % Lymphocytes % (25-47) % Monocytes % (0-7) % Eosinophils % (0-6) % Basophils % (0-2) % Metamyelocytes % (0-2) % Nucleated RBC % Abs Neuts (Manual) (1.5-7.7) 10^3/ul Abs Lymphs (Manual) (1.0-4.8) 10^3/ul Abs Monocytes (Manual) (0-0.8) 10^3/ul Absolute Eos (Manual) (0-0.6) 10^3/ul Abs Basophils (Manual) (0-0.2) 10^3/ul Normal RBC Morphology Anisocytosis INR (Anticoag Therapy) 1.15 H (0.77-1.02) APTT 21.9 L (26.0-36.3) seconds Sodium (133-145) mmol/L Potassium (3.5-5.0) mmol/L Chloride (101-111) mmol/L Carbon Dioxide (22-32) mmol/L Anion Gap (2-11) mmol/L BUN 22 (6-24) mg/dL Creatinine 1.03 (0.67-1.17) mg/dL Est GFR ( Amer) 89.4 (>60) Est GFR (Non-Af Amer) 69.5 (>60) BUN/Creatinine Ratio (8-20) Glucose (70-100) mg/dL Lactic Acid (0.5-2.0) mmol/L Calcium (8.6-10.3) mg/dL Total Bilirubin (0.2-1.0) mg/dL AST (13-39) U/L ALT (7-52) U/L Alkaline Phosphatase (34-104) U/L Troponin I (<0.04) ng/mL B-Natriuretic Peptide 1354 H ( - 100) pg/mL Total Protein (6.4-8.9) g/dL Albumin (3.2-5.2) g/dL Globulin (2-4) g/dL Albumin/Globulin Ratio (1-3) Influenza A (Rapid) (Negative) Influenza B (Rapid) (Negative) 07/16/17 07/16/17 Range/Units 04:59 05:02 WBC (3.5-10.8) 10^3/ul RBC (4.0-5.4) 10^6/ul Hgb (14.0-18.0) g/dl Hct (42-52) % MCV (80-94) fL MCH (27-31) pg MCHC (31-36) g/dl RDW (10.5-15) % Plt Count (150-450) 10^3/ul MPV (7.4-10.4) um3 Neut % (Auto) (38-83) % Lymph % (Auto) (25-47) % Rogers % (Auto) (0-7) % Eos % (Auto) (0-6) % Baso % (Auto) (0-2) % Absolute Neuts (auto) (1.5-7.7) 10^3/ul Absolute Lymphs (auto) (1.0-4.8) 10^3/ul Absolute Monos (auto) (0-0.8) 10^3/ul Absolute Eos (auto) (0-0.6) 10^3/ul Absolute Basos (auto) (0-0.2) 10^3/ul Absolute Nucleated RBC 10^3/ul Immature Gran % (0-9) % Neutrophils % (38-83) % Band Neutrophils % (0-8) % Lymphocytes % (25-47) % Monocytes % (0-7) % Eosinophils % (0-6) % Basophils % (0-2) % Metamyelocytes % (0-2) % Nucleated RBC % Abs Neuts (Manual) (1.5-7.7) 10^3/ul Abs Lymphs (Manual) (1.0-4.8) 10^3/ul Abs Monocytes (Manual) (0-0.8) 10^3/ul Absolute Eos (Manual) (0-0.6) 10^3/ul Abs Basophils (Manual) (0-0.2) 10^3/ul Normal RBC Morphology Anisocytosis INR (Anticoag Therapy) (0.77-1.02) APTT 33.3 (26.0-36.3) seconds Sodium (133-145) mmol/L Potassium (3.5-5.0) mmol/L Chloride (101-111) mmol/L Carbon Dioxide (22-32) mmol/L Anion Gap (2-11) mmol/L BUN (6-24) mg/dL Creatinine (0.67-1.17) mg/dL Est GFR ( Amer) (>60) Est GFR (Non-Af Amer) (>60) BUN/Creatinine Ratio (8-20) Glucose (70-100) mg/dL Lactic Acid (0.5-2.0) mmol/L Calcium (8.6-10.3) mg/dL Total Bilirubin (0.2-1.0) mg/dL AST (13-39) U/L ALT (7-52) U/L Alkaline Phosphatase (34-104) U/L Troponin I (<0.04) ng/mL B-Natriuretic Peptide ( - 100) pg/mL Total Protein (6.4-8.9) g/dL Albumin (3.2-5.2) g/dL Globulin (2-4) g/dL Albumin/Globulin Ratio (1-3) Influenza A (Rapid) Negative (Negative) Influenza B (Rapid) Negative (Negative) ECG, personally reviewed: sinus rhythm rate 88, T-wave inversions V1-5/III/AVF, ST depression V5-6 CXR, personally reviewed: RLL infiltrate with diffuse interstitial edema Impression: 82M HX CAD, squamous cell lung CA presenting with septic shock 2nd RLL pneumonia w/ 2nd NSTEMI associated with CHF DIAGNOSIS & PLAN Primary septic shock 2nd RLL healthcare associated pneumonia : IVFs cautiously given concomitant CHF : IV vancomycin/cefepime/levofloxacin : blood, sputum, & urine CXs : norepinephrine GTT to maintain MAP >65 : supplemental oxygen : supportive care NSTEMI, felt 2nd septic shock : no aspirin 2nd thrombocytopenia s/p platelet transfusion 07/15 : no beta-josue in setting of septic shock : heparin GTT : ECHO in AM : Silas Webber MD cardiology consulted CHF : diuresis once pressures can be stabilized, as needed : strict I&Os : daily weights Secondary squamous cell lung CA : management per oncology HX TIA/CVA : no aspirin as above HTN : hold metoprolol as above HLD : continue rosuvastatin once reconciled anxiety : alprazolam PRN Admission Rational: inpatient for critically ill patient requiring ICU monitoring, IVFs, IV ABX and with a high associated mortality DVTp: heparin GTT Code Status: DNR/I HCP:
[2017-07-16] MEDS ORDERED: Ondansetron INJ* 2 MG/ML VIAL IV PRN (04:26)
[2017-07-16] MEDS ORDERED: Albuterol 2.5 MG/3 ML NEB.SOL* (0.083%) INH PRN (04:26)
[2017-07-16] MEDS ORDERED: Acetaminophen TAB* 325 MG PO PRN (04:26)
[2017-07-16] MEDS ORDERED: Heparin DRIP 25,000 UNITS(*) 25,000 UNITS/500 ML BAG IVPB SCH (04:30)
[2017-07-16] MEDS ORDERED: Heparin VIAL(*) 5000 UNITS/ML VIAL (FIVE THOUSAND) IV PRN (04:44)
[2017-07-16] MEDS ORDERED: ALPRAZolam TAB* 0.25 MG PO ONE (04:57)
[2017-07-16] MEDS ORDERED: Vancomycin per Pharmacy* NOTE FOLLOW UP SCH (05:00)
[2017-07-16 05:26] LABS: EGFR Non-African American 69.5 (>60)
[2017-07-16] MEDS ORDERED: ALPRAZolam TAB* 0.25 MG PO PRN (06:01)
[2017-07-16] MEDS: Cefepime 2 GM in Dextrose(*) 2 GM/50 ML BAG IV SCH ×3 (06:38→22:34)
[2017-07-16 06:39] LABS: EGFR Non-African American 69.5 (>60)
[2017-07-16 06:48] LABS: ABS Basophils 0 10^3/ul (0-0.2); ABS Eosinophils 0 10^3/ul (0-0.6); ABS Lymphocytes 0.2 10^3/ul (1.0-4.8); ABS Monocytes 0.5 10^3/ul (0-0.8); ABS Neutrophils 1.9 10^3/ul (1.5-7.7); ABS Nucleated RBC 0 10^3/ul; Eosinophil % 0.6 % (0-6); Hematocrit 22 % (42-52); Hemoglobin 7.5 g/dl (14.0-18.0); Lymphocyte % 7.9 % (25-47); Mean Corpuscular HGB Conc 34 g/dl (31-36); Mean Corpuscular Hemoglobin 33 pg (27-31); Mean Corpuscular Volume 98 fL (80-94); Mean Platelet Volume 7.9 um3 (7.4-10.4); Nucleated Red Blood Cells % 0.2; Platelet Count 44 10^3/ul (150-450); Red Blood Count 2.23 10^6/ul (4.0-5.4); Red Cell Distribution Width 27 % (10.5-15); White Blood Count 2.6 10^3/ul (3.5-10.8)
[2017-07-16] MEDS: Docusate CAP* 100 MG PO SCH ×2 (07:39→22:34)
[2017-07-16] MEDS: Omeprazole CAP* 20 MG PO SCH (07:39)
[2017-07-16] MEDS: Levofloxacin 750 MG IVPREMIX(* 750 MG/150 ML BAG IVPB SCH (07:41)
--- NOTE | 2017-07-16 08:05 | RAD ---
INDICATION: Line placement COMPARISON: July 17, 2007 TECHNIQUE: An AP portable view obtained at 0604 hours is submitted. FINDINGS: Bones/Soft Tissues: There are no acute bony findings. There is a right IJ catheter in the superior vena cava. Cardiomediastinal: The cardiomediastinal silhouette is normal. Lungs: There is diffuse interstitial change likely reflecting interstitial edema. There is no focal consolidation. There is no pneumothorax. Pleura: No significant effusions. Other: None IMPRESSION: SUSPECT INTERSTITIAL EDEMA. RIGHT IJ CATHETER IN EXPECTED POSITION. NO PNEUMOTHORAX.
--- NOTE | 2017-07-16 08:14 | RAD ---
HISTORY: Slurred speech COMPARISONS: June 26, 2017 TECHNIQUE: Multiple contiguous axial CT scans were obtained of the head without intravenous contrast. FINDINGS: HEMORRHAGE/INFARCT: There is no hemorrhage or acute infarct. MASSES/SHIFT: There is no mass or shift. EXTRA-AXIAL SPACES: There are no extra-axial fluid collections. SULCI AND VENTRICLES: There is mild diffuse and proportional enlargement of the sulci and ventricles. CEREBRUM: There are no focal parenchymal abnormalities. BRAINSTEM: There are no focal parenchymal abnormalities. CEREBELLUM: There are no focal parenchymal abnormalities. VESSELS: The vessels are grossly normal. PARANASAL SINUSES: The paranasal sinuses are clear. ORBITS: The orbits are unremarkable. BONES AND SOFT TISSUE: No bone or soft tissue abnormalities are noted. OTHER: None IMPRESSION: NO ACUTE INTRACRANIAL PATHOLOGY. PRELIMINARY FINDINGS WERE DISCUSSED WITH DR. AGUILAR BY DR. RASCON AT APPROXIMATELY 1:28 AM ON JULY 16, 2017.
--- NOTE | 2017-07-16 08:15 | RAD ---
HISTORY: Shortness breath COMPARISONS: April 26, 2012 VIEWS: 1: frontal portable view of the chest at 1:18 AM FINDINGS: LINES AND TUBES: None. CARDIOMEDIASTINAL SILHOUETTE: Again noted is a paramediastinal mass of the right upper lung, similar to slightly decreased from the previous examination accounting for differences in technique PLEURA: The costophrenic angles are sharp. No pleural abnormalities are noted. LUNG PARENCHYMA: There is a diffuse reticular pattern with indistinct pulmonary vessels. As noted above, there is a paramediastinal mass of the right upper lung. ABDOMEN: The upper abdomen is clear. There is no subphrenic gas. BONES AND SOFT TISSUES: No bone or soft tissue abnormalities are noted. IMPRESSION: 1. 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 2. PULMONARY INTERSTITIAL EDEMA.
--- NOTE | 2017-07-16 08:23 | ED ---
Hemant Cervantes Angela, scribed for Ariel Webber MD on 07/16/17 at 0104 . Neurological HPI - HPI Summary HPI Summary: This pt is a 82 y/o male presenting to [facility] via EMS for fever, generalized weakness and speech difficulty. Pt had a 6 hour transfusion earlier today due to his low WBC count. notes the pt's blood pressure did not improve after transfusion. reports the pt began to have speech aphasia and difficulty after TIA 3 weeks ago during pt's third chemotherapy session. notes that pt's speech aphasia is brought on by stress. states that since the stroke pt has had trouble pronouncing "certain consonants." Two and a half weeks ago the pt was unable to say a word, and was worse than today. reports the pt was "terribly shaking" and was unsteady today. Per , pt finished radiation a long time ago. - History of Current Complaint Stated Complaint: GENERAL ILLNESS Hx Obtained From: Patient, Family/Section [employer] - , EMS Onset/Duration: Started hours ago, Still Present Current Severity: Moderate Character: Weak, Other: - speech aphasia Aggravating: Stress Alleviating: Nothing Associated Signs and Symptoms: Positive: Weakness, Impaired Speech - speech aphasia - Allergy/Home Medications Allergies/Adverse Reactions: Allergies Allergy/AdvReac Type Severity Reaction Status Date / Time No Known Allergies Allergy Verified 04/18/17 14:11 PMH/Surg Hx/FS Hx/Imm Hx Endocrine/Hematology History: Denies: Hx Diabetes Cardiovascular History: Reports: Hx Angina - PRN NITROSTAT, Hx Coronary Artery Disease, Hx Hypertension Denies: Hx Pacemaker/ICD History: Denies: Hx Dialysis, Hx Renal Disease Musculoskeletal History: Reports: Hx Arthritis, Other Musculoskeletal History - PINCHED NERVE IN BACK Sensory History: Reports: Hx Cataracts - BILATERAL, Hx Contacts or Glasses - GLASSES Denies: Hx Hearing Aid Opthamlomology History: Reports: Hx Cataracts - BILATERAL, Hx Contacts or Glasses - GLASSES Neurological History: Reports: Other Neuro Impairments/Disorders - NO SENSE OF SMELL Psychiatric History: Denies: Hx Panic Disorder - Cancer History Cancer Type, 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, Hx Chemotherapy: No Hx Radiation Therapy: No - Surgical History Surgery Procedure, Year, and Place: AGE 12 TONSILLECTOMY, BILAT CATARACT Hx Anesthesia Reactions: No Infectious Disease History: Denies: Traveled Outside the [place] in Last 30 Days - Family History Known Family History: Positive: Diabetes Family History: stroke - Social History Alcohol Use: Daily Alcohol Amount: 2-3 DRINKS DAILY Substance Use Type: Reports: None Smoking Status (MU): Former Smoker Amount Used/How Often: 1 PPD X 15 YEARS Have You Smoked in the Last Year: No Review of Systems Positive: Fever Respiratory: Negative Gastrointestinal: Negative Genitourinary: Negative Musculoskeletal: Negative Neurological: Other - speech aphasia, shaking, unsteady Positive: Weakness - generalized All Other Systems Reviewed And Are Negative: Yes Physical Exam Triage Information Reviewed: Yes Vital Signs On Initial Exam: Initial Vitals Temp Pulse Resp BP Pulse Ox 37.7 C 96 22 76/41 93 07/16/17 01:37 07/16/17 01:37 07/16/17 01:37 07/16/17 01:37 07/16/17 01:37 Vital Signs Reviewed: Yes Procedures - Central Line Central Line Lumen: triple Central Line Procedure: betadine prep, sterile drapes applied, sterile dressing applied Central Line Position: internal jugular (R) Anesthesia: Lidocaine cc's of anesthesia: 1 Complications: none Central Line Post Position: sutured, good blood return, position confirmed w/ CXR Diagnostics - Vital Signs Vital Signs Temp Pulse Resp BP Pulse Ox 07/16/17 04:17 103 19 72/51 94 07/16/17 04:00 97 22 66/47 82 07/16/17 03:37 102 21 70/43 95 07/16/17 03:35 38.3 C 97 20 70/43 97 07/16/17 02:27 82/46 07/16/17 02:03 94 17 75/41 95 07/16/17 01:37 37.7 C 96 22 76/41 93 - Laboratory Lab Results: Lab Results 07/16/17 07/16/17 07/16/17 Range/Units 01:27 01:27 01:27 WBC 2.9 L (3.5-10.8) 10^3/ul RBC 2.43 L (4.0-5.4) 10^6/ul Hgb 8.0 L (14.0-18.0) g/dl Hct 24 L (42-52) % MCV 98 H (80-94) fL MCH 33 H (27-31) pg MCHC 34 (31-36) g/dl RDW 26 H (10.5-15) % Plt Count 51 L (150-450) 10^3/ul MPV 8.5 (7.4-10.4) um3 Neut % (Auto) 71.4 (38-83) % Lymph % (Auto) 7.0 L (25-47) % [place] % (Auto) 20.5 H (0-7) % Eos % (Auto) 0.7 (0-6) % Baso % (Auto) 0.4 (0-2) % Absolute Neuts (auto) 2.1 (1.5-7.7) 10^3/ul Absolute Lymphs (auto) 0.2 L (1.0-4.8) 10^3/ul Absolute Monos (auto) 0.6 (0-0.8) 10^3/ul Absolute Eos (auto) 0 (0-0.6) 10^3/ul Absolute Basos (auto) 0 (0-0.2) 10^3/ul Absolute Nucleated RBC 0 10^3/ul Immature Gran % 4 (0-9) % Neutrophils % 75 (38-83) % Band Neutrophils % 1 (0-8) % Lymphocytes % 6 L (25-47) % Monocytes % 14 H (0-7) % Eosinophils % 1 (0-6) % Basophils % 0 (0-2) % Metamyelocytes % 3 H (0-2) % Nucleated RBC % 0.5 Abs Neuts (Manual) 2.2 (1.5-7.7) 10^3/ul Abs Lymphs (Manual) 0.2 L (1.0-4.8) 10^3/ul Abs Monocytes (Manual) 0.4 (0-0.8) 10^3/ul Absolute Eos (Manual) 0 (0-0.6) 10^3/ul Abs Basophils (Manual) 0 (0-0.2) 10^3/ul Normal RBC Morphology Not Reportable Anisocytosis 1+ INR (Anticoag Therapy) (0.77-1.02) APTT (26.0-36.3) seconds Sodium 135 (133-145) mmol/L Potassium 3.8 (3.5-5.0) mmol/L Chloride 106 (101-111) mmol/L Carbon Dioxide 22 (22-32) mmol/L Anion Gap 7 (2-11) mmol/L BUN 22 (6-24) mg/dL Creatinine 1.04 (0.67-1.17) mg/dL Est GFR ( Amer) 88.4 (>60) Est GFR (Non-Af Amer) 68.7 (>60) BUN/Creatinine Ratio 21.2 H (8-20) Glucose 105 H (70-100) mg/dL Lactic Acid 1.3 (0.5-2.0) mmol/L Calcium 8.9 (8.6-10.3) mg/dL Total Bilirubin 0.80 (0.2-1.0) mg/dL AST 42 H (13-39) U/L ALT 17 (7-52) U/L Alkaline Phosphatase 60 (34-104) U/L Troponin I 4.24 H* (<0.04) ng/mL B-Natriuretic Peptide ( - 100) pg/mL Total Protein 5.9 L (6.4-8.9) g/dL Albumin 3.3 (3.2-5.2) g/dL Globulin 2.6 (2-4) g/dL Albumin/Globulin Ratio 1.3 (1-3) 07/16/17 07/16/17 Range/Units 01:27 01:27 WBC (3.5-10.8) 10^3/ul RBC (4.0-5.4) 10^6/ul Hgb (14.0-18.0) g/dl Hct (42-52) % MCV (80-94) fL MCH (27-31) pg MCHC (31-36) g/dl RDW (10.5-15) % Plt Count (150-450) 10^3/ul MPV (7.4-10.4) um3 Neut % (Auto) (38-83) % Lymph % (Auto) (25-47) % Lehigh % (Auto) (0-7) % Eos % (Auto) (0-6) % Baso % (Auto) (0-2) % Absolute Neuts (auto) (1.5-7.7) 10^3/ul Absolute Lymphs (auto) (1.0-4.8) 10^3/ul Absolute Monos (auto) (0-0.8) 10^3/ul Absolute Eos (auto) (0-0.6) 10^3/ul Absolute Basos (auto) (0-0.2) 10^3/ul Absolute Nucleated RBC 10^3/ul Immature Gran % (0-9) % Neutrophils % (38-83) % Band Neutrophils % (0-8) % Lymphocytes % (25-47) % Monocytes % (0-7) % Eosinophils % (0-6) % Basophils % (0-2) % Metamyelocytes % (0-2) % Nucleated RBC % Abs Neuts (Manual) (1.5-7.7) 10^3/ul Abs Lymphs (Manual) (1.0-4.8) 10^3/ul Abs Monocytes (Manual) (0-0.8) 10^3/ul Absolute Eos (Manual) (0-0.6) 10^3/ul Abs Basophils (Manual) (0-0.2) 10^3/ul Normal RBC Morphology Anisocytosis INR (Anticoag Therapy) 1.15 H (0.77-1.02) APTT 21.9 L (26.0-36.3) seconds Sodium (133-145) mmol/L Potassium (3.5-5.0) mmol/L Chloride (101-111) mmol/L Carbon Dioxide (22-32) mmol/L Anion Gap (2-11) mmol/L BUN (6-24) mg/dL Creatinine (0.67-1.17) mg/dL Est GFR ( Amer) (>60) Est GFR (Non-Af Amer) (>60) BUN/Creatinine Ratio (8-20) Glucose (70-100) mg/dL Lactic Acid (0.5-2.0) mmol/L Calcium (8.6-10.3) mg/dL Total Bilirubin (0.2-1.0) mg/dL AST (13-39) U/L ALT (7-52) U/L Alkaline Phosphatase (34-104) U/L Troponin I (<0.04) ng/mL B-Natriuretic Peptide 1354 H ( - 100) pg/mL Total Protein (6.4-8.9) g/dL Albumin (3.2-5.2) g/dL Globulin (2-4) g/dL Albumin/Globulin Ratio (1-3) Result Diagrams: 07/16/17 06:12 07/16/17 06:12 Lab Statement: Any lab studies that have been ordered have been reviewed, and results considered in the medical decision making process. - Radiology Chest XR Radiology Interpretation Completed By: ED Physician - CT Brain CT CT Interpretation: No Acute Changes - IMPRESSION: No evidence of acute pathology. Dr. Webber has reviewed this radiology report. CT Interpretation Completed By: Radiologist - EKG 01:24 Cardiac Rate: NL EKG Rhythm: Sinus Rhythm - at 88 bpm EKG Interpretation: Right bundle branch block. No acute ST changes. NIH Scale - NIH Scale Level of Consciousness: Alert/Keenly Responsive Ask Patient the Month and His/Her Age: Both Correct Ask Pt to Open/Close Eyes and Global Coordinator/Release Non-Paretic Hand: Both Correctly Best Gaze (Only Horizontal Eye Movement): Normal Visual Field Testing: No Visual Loss Facial Paresis-Pt to Smile & Close Eyes or Grimace Symmetry: Normal/Symmetrical Motor Function - Right Arm: No Drift-Holds 10 Seconds Motor Function - Left Arm: No Drift-Holds 10 Seconds Motor Function - Right Leg: No Drift-Holds 10 Seconds Motor Function - Left Leg: No Drift-Holds 10 Seconds Limb Ataxia-Must be out of Proportion to Weakness Present: Absent Sensory (Use Pinprick to Test Arms/Legs/Trunk/Face): Normal Best Language (Describe Picture, Name Items): Some Loss Dysarthria (Read Several Words): Slurs Some Words Extinction and Inattention: No Abnormality Total Score: 2 Re-Evaluation - Re-Evaluation First Eval Re-Evaluation Time: 02:20 Comment: I reviewed plan of care with the pt and . I discussed the lab results with pt and . Course/Dx - Course Assessment/Plan: Upon report from EMS that patient had changes in speech en route to hospital, sukumar pulliam called by me for emergent CT. PT at baseline mental status and verbal ability per his , sukumar pulliam deferred after reevaluation and confirmation of no new neurological deficits. pt seen to have fever in context of possible R sided infiltrate. Started in IV abx. Persistent hypotension requiring pressors, central line placed successfully. NSTEMI noted on labs, no acute EKG changes suggestive of stemi. admitted for further care. Pt is DNR per documentation and conversations with patient and family. - Diagnoses Provider Diagnoses: Severe sepsis, NSTEMI (non-ST elevated myocardial infarction) During the Visit The Following Alert/Code Occurred: Code Flowers - at 01:00 - Physician Notifications Discussed Care Of Patient With: Radiologist Time Discussed With Above Provider: 01:28 Instructed by Provider To: Other - Negative brain CT. [03:18] I discussed pt care with Dr. Nicholson, hospitalist, who accepted the pt for admission. [03: 37] I discussed with Dr. Brown, oncologist. - Critical Care Time Critical Care Time: 75-104 min - I provided 100 minutes of critical care time for this patient performing clinical evals, response to treatment, diagnostic tests, interpretation, and conversatinos with family and other providers. Not including procedure time. Discharge - Sign-Out/Discharge Documenting (check all that apply): [place]charge [place] [facility] [place]charge Plan Condition: Critical Disposition: ADMITTED TO [facility] - Billing Disposition and Condition Condition: CRITICAL [place] [facility] [place] The documentation as recorded by the Hemant bhardwaj Angela accurately reflects the service I personally performed and the decisions made by , Ariel Webber MD.
[2017-07-16] MEDS ORDERED: Morphine INJ* 2 MG/ML 1 ML CARPUJECT ONE (08:49)
[2017-07-16] MEDS ORDERED: Hydrocortisone INJ* 100 MG VIAL ONE (08:49)
[2017-07-16] MEDS: Hydrocortisone INJ* 100 MG VIAL IV SCH ×2 (08:51→15:26)
[2017-07-16] MEDS: Morphine INJ* 2 MG/ML 1 ML CARPUJECT IV PRN (08:51)
--- NOTE | 2017-07-16 10:00 | ECHO ---
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 Technical Comments: The study quality is good. Completed at 0840. Left Ventricle: The left ventricular chamber size is normal. Mild concentric left ventricular hypertrophy is observed. There are multiple regional wall motion abnormalities. There is moderate to severely decreased left ventricular systolic function. The estimated ejection fraction is 20-25%. The assessment of diastolic function is non-diagnostic. The basal anteroseptal, basal anterior, basal inferolateral, basal inferoseptal, mid anteroseptal, mid anterior, mid anterolateral, mid inferolateral, and mid inferoseptal wall segments are hypokinetic (score 2). The apical septal, apical anterior, apical lateral, and apical inferior wall segments are akinetic (score 3). There is scarring/thinningof the basal inferior, and mid inferiorwall segments (score 5). Overall wallmotion score index is 2.56 Left Atrium: The left atrium is moderately dilated. Right Ventricle: Moderator Band present. The right ventricle is mildly dilated. The right ventricular global systolic function is low normal. Right Atrium: The right atrium is mild to moderately dilated. Aortic Valve: The aortic valve is trileaflet. The aortic valve leaflets are moderately thickened. There is moderate thickening of the right coronary cusp. Systolic excursion of the aortic valve cusps is reduced. There is a trace of aortic regurgitation. There is mild aortic stenosis. Mitral Valve: There is mitral annular calcification. The mitral valve leaflets are moderately thickened. There is moderate mitral regurgitation. There is no evidence of mitral stenosis. Tricuspid Valve: The tricuspid valve leaflets are mildly thickened. There is moderate tricuspid regurgitation. The right ventricular systolic pressure is estimated at 59 mmHg. There is evidence of moderate to severe pulmonary hypertension. There is no tricuspid stenosis. Pulmonic Valve: The pulmonic valve structure is not well visualized. There is a trace pulmonic regurgitation. There is no pulmonic stenosis. Pericardium: There is no significant pericardial effusion. Aorta: There is no dilatation of the ascending aorta. There is no dilatation of the aortic arch. The aortic root is normal in size. Pulmonary Artery: The main pulmonary artery appears normal. Venous: The inferior vena cava is dilated. There is less than 50% respiratory change in the inferior vena cava dimension. Summary: There was not any prior study for comparison. Conclusions Mild concentric left ventricular hypertrophy is observed. There are multiple regional wall motion abnormalities. There is moderate to severely decreased left ventricular systolic function. The estimated ejection fraction is 20-25%. The left atrium is moderately dilated. The right ventricle is mildly dilated. The right ventricular global systolic function is low normal. The right atrium is mild to moderately dilated. There is mild aortic stenosis. There is moderate mitral regurgitation. There is moderate tricuspid regurgitation. The right ventricular systolic pressure is estimated at 59 mmHg. There is evidence of moderate to severe pulmonary hypertension. Measurements Name Value Normal Range RVIDd (AP) 2D 3.5 cm (0.9 - 2.6) RVDdMajor (2D) 4.5 cm (2.2 - 4.4) RAd ISD 4CH 5.6 cm (3.4 - 4.9) RA (A4C)W 4.4 cm (2.9 - 4.6) IVSd (2D) 1.1 cm (0.6 - 1) LVPWd (2D) 1.1 cm (0.6 - 1) LVIDd (2D) 5.2 cm (3.6 - 5.4) LVIDs (2D) 4.1 cm - LV FS (2D) 21 % (25 - 45) Aortic Annulus 2.1 cm (1.4 - 2.6) Ao root diameter (2D) 2.9 cm (2.1 - 3.5) Ascending Ao 3.4 cm (2.1 - 3.4) Aortic arch 2.9 cm (1.8 - 3.4) LA dimension (AP) 2D 4.3 cm (2.3 - 3.8) LAd ISD 4CH 5.5 cm (2.9 - 5.3) LA ISD 4CH W 5.1 cm (2.5 - 4.5) Name Value Normal Range LA ESV SP 4CH (A/L) 79 ml - LA ESV SP 2CH (A/L) 92 ml - LA ESV BP (A/L) 91 ml - LA ESV BP (A/L) index 45 ml/m2 - LA ESV SP 4CH (MOD) 69 ml - LA ESV SP 2CH (MOD) 90 ml - Name Value Normal Range MV E-wave Vmax 0.9 m/sec - MV deceleration time 166.76 msec - MV A-wave Vmax 0.67 m/sec - MV E:A ratio 1.36 ratio - LV septal e' Vmax 0.1 m/sec - LV lateral e' Vmax 0.09 m/sec - LV E:e' septal ratio 9 ratio - LV E:e' lateral ratio 10 ratio - Name Value Normal Range AV Vmax 1.3 m/sec - AV VTI 23.2 cm - AV peak gradient 6.22 mmHg - AV mean gradient 3.75 mmHg - LVOT diameter 2 cm - LVOT Vmax 0.59 m/sec - LVOT VTI 10.78 cm - LVOT peak gradient 1.4 mmHg - LVOT mean gradient 0.88 mmHg - NANCY Vmax 0.6 m/sec - Name Value Normal Range MR Vmax 3.99 m/sec - MR VTI 99.58 cm - MR flow (PISA) 39.97 ml/sec - MR ERO 0.1 cm2 - MR PISA radius 0.4 cm - MR alias Vmax 31 cm/sec - Name Value Normal Range TR Vmax 3.3 m/sec - TR peak gradient 44 mmHg - RAP 15 mmHg - RVSP 59 mmHg - IVC diameter 3.1 cm - Name Value Normal Range PV Vmax 0.75 m/sec - PV peak gradient 2.27 mmHg - Wallmotion BAS Hypokinetic BA Hypokinetic BAL Normal MICHELL Hypokinetic BI Scarring/Thinning BIS Hypokinetic MAS Hypokinetic MA Hypokinetic MAL Hypokinetic MIL Hypokinetic DC Scarring/Thinning MIS Hypokinetic Akinetic AA Akinetic AL Akinetic AI Akinetic APEX Dyskinetic
[2017-07-16] MEDS: NS 0.9% 250 ML* 246 ML with Norepinephrine VIAL* 4 MG IV SCH ×4 (10:59→20:42)
[2017-07-16 11:28] LABS: Urine Appearance Cloudy; Urine Blood Negative (Negative); Urine Color Yellow; Urine Ketones Negative (Negative); Urine Protein Negative (Negative); Urine Specific Gravity 1.024 (1.010-1.030); Urine Urobilinogen Negative (Negative)
[2017-07-16] MEDS: Vancomycin(*) 750 MG in NS 0.9% 250 ML* 250 ML IVPB SCH ×2 (11:40→20:33)
--- NOTE | 2017-07-16 14:26 | CONS ---
CC: Primary Care Provider; Aditi Brown MD CONSULTATION REPORT: DATE OF CONSULT: 07/16/17 REQUESTING PHYSICIAN: Jonah Nicholson MD ATTENDING PHYSICIAN: Tadeo Hernández MD PRIMARY ONCOLOGIST: Aditi Brown MD CONSULTING PROVIDER: BERNARDINO Houston REASON FOR CONSULT: Septic shock and non-ST elevation MA with squamous cell carcinoma of the lung, undergoing active concurrent chemo and radiation. 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 He completed radiation therapy approximately 1 month ago at the end of May and was scheduled for his last cycle of carboplatin and pemetrexed yesterday, 07/15/17, but he did not receive treatment at that time. The patient was seen in the chemo suite for anticipated treatment, but was noted to be severely anemic and thrombocytopenic and hypotensive. The patient's treatment plans were held and he received 2 units of packed red blood cells and IV hydration. The patient has had no other acute complaints at that time and returned home. Shortly after returning home, he began to have rigors and was noted to be febrile and subsequently recommended to proceed to the emergency department for further evaluation. Upon reaching the emergency department, the patient was noted to be severely hypotensive with a blood pressure of 76/41 and mildly tachycardic with heart rate of approximately 102. The patient was mentating at that time. Initial labs showed a mild leukopenia with a total white blood cell count of 2900 and an absolute neutrophil count of 2100. Hemoglobin at that time was 8.0 (noted to be 6.6 earlier in the day prior to 2 units of packed red blood cells) and a platelet count of 51,000. Chest x-ray was suggestive of a possible right-sided infiltrate and some mild pulmonary edema without significant effusions. The patient was subsequently treated for septic shock of a presumed respiratory source and started on pressor therapy and broad spectrum antibiotics including double pseudomonal coverage and transferred to the ICU. Upon evaluation this morning, the patient states that he is overall feeling fairly well. He remains on pressor support. He is mentating well and urine output seems to be appropriate. When discussing his symptoms over the last few days, the patient denies any recent cough or shortness of breath. Really his first onset of symptoms were these rigors that occurred at home. He denies any changes to his bowel habits, no melena or hematochezia. No recent nausea, vomiting, or diarrhea. No complaints of abdominal pain. Again, no complaints of cough or shortness of breath. He does have some pleuritic chest pain which has been present since radiation therapy and remains unchanged at this time. Also of significance, the patient's initial troponin was at 4.24 and on repeat 5 hours later, down to 3.85. No ST segment changes. The patient denies any complaints of chest pain. His BNP is significantly elevated at 1354 without any prior measurements for comparison. He reports symptoms consistent with stable angina that have been ongoing for quite sometime. He had a cardiac catheterization in 2008 which demonstrated complete occlusion of the mid LAD with collaterals. The patient states that he has chest pain most days of the week, relieved with 1 dose of nitroglycerin. He had no additional cardiac symptoms prior to him reaching the emergency department or during treatment. 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 MRI at that time confirmed presence of an area of acute infarct in the left inferior frontal gyrus. The patient was having symptoms of dysarthria associated with this finding of infarct. He, however, left the emergency department AMA prior to further workup being completed. The patient has no known history of AFib. He did start full-dose aspirin therapy following this recent stroke and continues to complain of dysarthria. No other neurologic deficits. PAST MEDICAL HISTORY: 1. Squamous cell carcinoma of the lung, stage 3A treated with concurrent radiation and chemotherapy - received carboplatin and pemetrexed and completed radiation therapy at the end of May. 2. Coronary artery disease with known occlusion of the mid LAD with collaterals. 3. Hyperlipidemia. 4. Carotid stenosis. PAST SURGICAL HISTORY: 1. Cataract extraction. 2. Tonsillectomy. HOME MEDICATIONS: 1. Alprazolam by mouth as needed for anxiety. 2. Aspirin 325 mg daily. 3. Dexamethasone for use associated with chemotherapy. 4. Folic acid 1 tablet p.o. daily. 5. Metoprolol tartrate 25 mg daily. 6. Crestor 40 mg daily. 7. Vitamin B12, 1000 mcg daily. SOCIAL HISTORY: The patient lives at home with his . He has a 25-pack- year smoking history. He reports about 1 alcoholic beverage daily. PHYSICAL EXAM: Recent vitals: Temperature 100.1 degrees Fahrenheit, pulse 93 beats per minute, respiratory rate 26, oxygen saturation 97% on 3.5 L via nasal cannula and a blood pressure of 84/54 mmHg. General: This is an 82-year-old gentleman that is sitting up in a recliner who appears to be in no acute distress. He is alert and cooperative. HEENT: Head is normocephalic, atraumatic. He does have a central line in place at the right IJ. Mucous membranes are pink and moist. Cardiovascular: Heart has a regular rate and rhythm without murmurs, rubs, or gallops. Respiratory: Lungs are essentially clear to auscultation without appreciated wheezes, crackles, or rhonchi. Abdomen is soft and nontender to palpation. Extremities show no significant edema. Neuro: The patient has dysarthria, but able to carry on a conversation , but does have difficulty saying some words which seem to be frustrating to him. Strength is otherwise grossly intact. LABORATORY DATA: CBC on 07/16/17 shows white blood cell count of 2600 with an absolute neutrophil count of 1900, hemoglobin of 7.5 g/dL and a platelet count of 44,000. Chemistries show normal sodium, potassium of 3.5, BUN of 22, creatinine 1.03, troponin of 3.85. Morning cortisol is pending and influenza is negative. IMAGING: CT brain shows no acute intracranial pathology. EKG shows a sinus rhythm with right bundle branch block. Chest x-ray shows stable mass of the right upper lung similar to slightly decreased in size compared to prior imaging, noted pulmonary interstitial edema. ASSESSMENT AND PLAN: This is an 82-year-old gentleman admitted to ICU with septic shock and non-ST elevation myocardial infarction with squamous cell carcinoma of the right lung, treated with concurrent chemo and radiation. Oncology service has been asked to consult. 1. Septic shock - the patient is still hypotensive and requiring pressor support. He is mentating well and urine output appears to be appropriate. He remains on broad-spectrum antibiotic coverage including double pseudomonal coverage. He is not neutropenic. Source of infection is thought to be respiratory; however, findings on his chest x-ray are likely related to his malignancy and/or radiation therapy, although pneumonia cannot be completely ruled out. He does not have any clinical signs of pneumonia and specifically denies any recent cough or shortness of breath. Blood and urine cultures are pending at this time. We will defer further management to as400 administrator service. 2. Pancytopenia - secondary to chemotherapy. He received 2 units of packed red blood cells, 07/15/17. Could consider that his anemia may be due to a secondary GI bleed associated with his thrombocytopenia as his anemia seems to be more severe than what has been seen in previous chemotherapy cycles. Checking stool for occult blood has been ordered. 3. Non-ST elevation myocardial infarction - echocardiogram has been ordered and pending. Preliminary findings reported by the as400 administrator indicates periapical hypokinesis/akinesis. Cardiology will be consulted. He does have known occlusive disease of the LAD and is currently chest pain free. Due to his thrombocytopenia, anti-platelet products have been held at this time. Current management includes a heparin drip. 4. Acute systolic heart failure - chest x-ray suggestive of pulmonary edema, but clinically does not appear to be grossly fluid overloaded. We will defer fluid management to as400 administrator service. 5. Subacute ischemic cerebrovascular accident - the patient is approximately 2.5 weeks out from ischemic cerebrovascular accident with residual symptoms including dysarthria. Again as mentioned in HPI, he did not receive the thorough workup at that time that this was found. He has no known dysrhythmias. Echocardiogram has been ordered for this admission and is currently pending. The patient will continue with cardiac monitoring. He was taking a full strength aspirin at home since this event which has currently been held due to his thrombocytopenia. We will watch closely for any new neurologic events. 6. Squamous cell carcinoma of the lung - stage 3A. The patient is being treated by Dr. Aditi Brown. He received concurrent carboplatin and pemetrexed with radiation therapy. Radiation was completed at the end of May and he was scheduled for his last cycle of carboplatin and pemetrexed yesterday, 07/15/17 which he did not receive. Clinical course during this admission will dictate further treatment planning, but seems that he has tolerated treatment well up to this point. 7. Code status. The patient is DNR. 8. Healthcare proxy is his . DISPOSITION: The patient will remain on the primary service of the as400 administrator at this time. Oncology service will continue to follow along and address treatment planning in more detail at the time of discharge. BERNARDINO HOUSTON [id number]/[facility] #: [id number] UNITED HEALTH SERVICESCarine
--- NOTE | 2017-07-16 14:51 | CONS ---
CRITICAL CARE CONSULTATION: DATE OF CONSULT: 07/16/17 REASON FOR CONSULTATION: Respiratory insufficiency and hypotension. HISTORY OF PRESENT ILLNESS: This patient is an 82-year-old male with squamous cell carcinoma of the lung diagnosed in March 2017, treated with radiation therapy and currently with chemotherapy. The patient was admitted from the emergency room last evening with diffuse pulmonary infiltration, fever, pancytopenia and hypotension. The presumptive diagnosis is community-acquired pneumonia with septic shock. The patient was seen in chemotherapy clinic the day prior to admission and was noted to be pancytopenic - was given 2 units of packed cells and 1 platelet pack. He subsequently went home and developed rigors, temperature to 102 degrees and was brought to the emergency department. There are no symptoms related to an upper respiratory tract infection. There is a prior history of coronary artery disease (cardiac catheterization in 2008 showed an occluded LAD). Cardiac ultrasound shortly after admission showed an ejection fraction of 25%. There is also a recent stroke, which has left an apparent aphasia (expressive). MEDICATIONS: Current meds include: 1. Levofloxacin 750 mg daily IV. 2. Cefepime 2 g q.8 hours. 3. Vancomycin (dose adjusted to give a trough level of 15 to 20 mcg/mL). 4. Levophed (10 mcg per minute). 5. Hydrocortisone (100 mg IV q.8 hours). 6. Albuterol (2.5 mg q.2 hours p.r.n. wheezing). 7. Heparin drip (to maintain an activated PTT 3 times control). ALLERGIES: There are no known drug allergies. PHYSICAL EXAM: General: The patient was alert, appeared to be oriented, but did have some difficulty expressing himself. Vital Signs: Last temperature was 100.1, T-max was 101.4. Heart rate 95, blood pressure 90/56 with a mean of 65 (on 10 mcg of Levophed IV). Respiratory rate 18 and nonlabored. Pulse ox saturation 94% on 2 L of oxygen by nasal cannula. HEENT: Pupils are responsive. Oropharynx is clear. Neck: Supple. No JVD. Lungs: Occasional end inspiratory crackles at both bases posteriorly. Otherwise, lungs are clear and there is no wheezing or rhonchi. Cardiac Exam: There is a high-pitched early systolic murmur heard at the apex radiating up along the left sternal border. Abdomen: Soft, nontender. Extremities are warm. There is no cyanosis or edema. LABORATORY DATA: Admission laboratory exam is significant for a white count of 2.9, platelet count 51,000, hemoglobin of 8. Lactate was normal at 1.3 and BUN and creatinine were also normal at 22 and 1.03. Troponin I was 4.24 admission and 6 hours later was 3.85. BNP was 1354 on admission. Chest x-ray showed a linear interstitial infiltration in both mid to lower lung stone, greater on the right than the left. EKG showed a right bundle branch block with a first-degree AV block. Echocardiography showed LVH with an akinetic apex and an ejection fraction estimated at 20% to 25% along with moderate mitral regurgitation and tricuspid regurgitation and pulmonary hypertension. IMPRESSION: The presumptive diagnoses include a community-acquired pneumonia with pancytopenia from chemotherapy, along with a severe cardiomyopathy ( ejection fraction of 25%), that could represent recent ischemia. However, there is no evidence for ongoing ischemia and, given the underlying carcinoma and overall clinical condition, the patient is not really a candidate for cardiac catheterization at this time. The elevated troponins could be secondary to stress-induced release. The hypotension in this case likely does not represent circulatory shock, considering the normal lactate level. There is a possibility of adrenal insufficiency as a contributing factor, and this will be evaluated (with a random cortisol level). MANAGEMENT: 1. Broad-spectrum antibiotic coverage for presumed pneumonia, pending culture results. 2. The patient is currently receiving Levophed for the hypotension and we will attempt to wean this as soon as possible. 3. I sent a random cortisol level and will treat empirically with hydrocortisone (100 mg q.8 hours IV) until the cortisol level is available. 4. Monitor serial troponins and EKGs. 5. The patient's is coming in and I will speak to her about end-of-life decisions. Critical Care Time: 60 minutes [id number]/[facility]– [place] #: [id number] KI
[2017-07-16] MEDS: CMCS: Melatonin (NF) 3 MG TAB PO PRN (22:34)
[2017-07-17] MEDS: Hydrocortisone INJ* 100 MG VIAL IV SCH ×2 (01:43→08:53)
[2017-07-17] MEDS: Vancomycin(*) 750 MG in NS 0.9% 250 ML* 250 ML IVPB SCH ×3 (03:33→19:43)
[2017-07-17] MEDS: NS 0.9% 250 ML* 246 ML with Norepinephrine VIAL* 4 MG IV SCH ×4 (04:45→15:07)
[2017-07-17] MEDS: Cefepime 2 GM in Dextrose(*) 2 GM/50 ML BAG IV SCH ×3 (05:09→20:49)
[2017-07-17] MEDS: Levofloxacin 750 MG IVPREMIX(* 750 MG/150 ML BAG IVPB SCH (05:50)
[2017-07-17] MEDS: Omeprazole CAP* 20 MG PO SCH (06:09)
[2017-07-17 06:14] LABS: ABS Basophils 0 10^3/ul (0-0.2); ABS Eosinophils 0 10^3/ul (0-0.6); ABS Lymphocytes 0.2 10^3/ul (1.0-4.8); ABS Monocytes 0.8 10^3/ul (0-0.8); ABS Neutrophils 3.4 10^3/ul (1.5-7.7); ABS Nucleated RBC 0 10^3/ul; Eosinophil % 0 % (0-6); Hematocrit 24 % (42-52); Hemoglobin 8.4 g/dl (14.0-18.0); Lymphocyte % 4.3 % (25-47); Mean Corpuscular HGB Conc 36 g/dl (31-36); Mean Corpuscular Hemoglobin 35 pg (27-31); Mean Corpuscular Volume 98 fL (80-94); Mean Platelet Volume 7.8 um3 (7.4-10.4); Nucleated Red Blood Cells % 0; Platelet Count 52 10^3/ul (150-450); Red Blood Count 2.43 10^6/ul (4.0-5.4); Red Cell Distribution Width 27 % (10.5-15); White Blood Count 4.4 10^3/ul (3.5-10.8)
[2017-07-17 06:34] LABS: EGFR Non-African American 84.4 (>60)
[2017-07-17] MEDS: Docusate CAP* 100 MG PO SCH ×2 (08:53→20:49)
--- NOTE | 2017-07-17 09:26 | PN ---
Progress Note - Progress Note Date of Service: 07/17/17 SOAP: Subjective: [Patient reports a cough that has developed overnight, no dyspnea, but increased O2 demand. Mild edema. Still on levophed drip. Fevers have resolved. No CP or SOB. Echo demonstrates severe apical dysfunction with EF 20 -25%. Heparin stopped, no c/o CP. Troponin trending down.] Objective: [ Acetaminophen (Tylenol Tab*) 650 mg PO Q6H PRN PRN Reason: FEVER/PAIN Albuterol (Ventolin 2.5 Mg/3 Ml Neb.Leslie*) 2.5 mg INH Q2H PRN PRN Reason: SOB/WHEEZING Alprazolam (Xanax Tab*) 0.25 mg PO Q6H PRN PRN Reason: ANXIETY Docusate Sodium (Colace Cap*) 200 mg PO BID [facility] Last Admin: 07/17/17 08:53 Dose: 200 mg Heparin Sodium (Porcine) (Heparin Vial(*)) 0 units IV .FOR BOLUSES PRN PRN Reason: HEPARIN DRIP BOLUSES Last Admin: 07/16/17 06:32 Dose: 4,000 units Hydrocortisone Sodium Succinate (Solu-Cortef*) 100 mg IV Q8H [facility] Last Admin: 07/17/17 08:53 Dose: 100 mg Levofloxacin/Dextrose (Levaquin 750 Mg Ivpremix(*)) 750 mg in 150 mls @ 100 mls /hr IVPB Q24H [facility] Last Admin: 07/17/17 05:50 Dose: 100 mls/hr Cefepime HCl (Maxipime 2 Gm In Dextrose Duplex (*)) 2 gm in 50 mls @ 100 mls/ hr IV Q8H [facility] Last Admin: 07/17/17 05:09 Dose: 100 mls/hr Vancomycin HCl 750 mg/ Sodium (Chloride) 250 mls @ 166.667 mls/hr IVPB Q8H [facility] Last Admin: 07/17/17 03:33 Dose: 166.667 mls/hr Norepinephrine Bitartrate 4 mg (/ Sodium Chloride) 250 mls @ 18.75 mls/hr IV .INITIAL RATE COLE; 5 MCG/MIN PRN Reason: Protocol Last Admin: 07/17/17 04:45 Dose: 18.75 mls/hr Lactated Ringer's (Lactated Ringers 500 Ml Bag*) 500 mls @ 0 mls/hr IV ONCE [facility] PRN Reason: As Directed Stop: 07/17/17 10:00 Last Admin: 07/17/17 08:53 Dose: 999 mls/hr Melatonin (Melatonin (Nf)) 3 mg PO BEDTIME PRN; Protocol PRN Reason: Sleep Last Admin: 07/16/17 22:34 Dose: 3 mg Morphine Sulfate (Morphine Inj (Syringe)*) 2 mg IV Q4H PRN PRN Reason: PAIN - MILD Last Admin: 07/16/17 08:51 Dose: 2 mg Omeprazole (Prilosec Cap*) 20 mg PO DAILY@0600 [facility] Last Admin: 07/17/17 06:09 Dose: 20 mg Ondansetron HCl (Zofran Inj*) 4 mg IV Q6H PRN PRN Reason: NAUSEA Pharmacy Consult (Vancomycin Per Pharmacy*) 1 note FOLLOW UP .VANC PER PHARMACY [facility] Pharmacy Profile Note (Vancomycin Trough Check) 1 note FOLLOW UP 1130 ONE Stop: 07/17/17 11:31 Laboratory Results - last 24 hr 07/16/17 07/16/17 07/16/17 01:27 06:12 10:48 WBC RBC Hgb Hct MCV MCH MCHC RDW Plt Count MPV Neut % (Auto) Lymph % (Auto) [place] % (Auto) Eos % (Auto) Baso % (Auto) Absolute Neuts (auto) Absolute Lymphs (auto) Absolute Monos (auto) Absolute Eos (auto) Absolute Basos (auto) Absolute Nucleated RBC Nucleated RBC % Hem Pathologist Commnt Sodium Potassium Chloride Carbon Dioxide Anion Gap BUN Creatinine Est GFR ( Amer) Est GFR (Non-Af Amer) BUN/Creatinine Ratio Glucose Calcium Troponin I Cortisol 15.41 Urine Color Yellow Urine Appearance Cloudy Urine pH 5.0 Ur Specific [place] 1.024 Urine Protein Negative Urine Ketones Negative Urine Blood Negative Urine Nitrate Negative Urine Bilirubin Negative Urine Urobilinogen Negative Ur Leukocyte Esterase Negative Urine Glucose Negative 07/16/17 07/17/17 07/17/17 15:32 06:00 06:00 WBC 4.4 RBC 2.43 L Hgb 8.4 L Hct 24 L MCV 98 H MCH 35 H MCHC 36 RDW 27 H Plt Count 52 L MPV 7.8 Neut % (Auto) 77.3 Lymph % (Auto) 4.3 L [place] % (Auto) 18.4 H Eos % (Auto) 0 Baso % (Auto) 0 Absolute Neuts (auto) 3.4 Absolute Lymphs (auto) 0.2 L Absolute Monos (auto) 0.8 Absolute Eos (auto) 0 Absolute Basos (auto) 0 Absolute Nucleated RBC 0 Nucleated RBC % 0 Hem Pathologist Commnt Sodium 139 Potassium 3.8 Chloride 110 Carbon Dioxide 21 L Anion Gap 8 BUN 21 Creatinine 0.87 Est GFR ( Amer) 108.6 Est GFR (Non-Af Amer) 84.4 BUN/Creatinine Ratio 24.1 H Glucose 174 H Calcium 8.7 Troponin I 3.29 H* 2.42 H* Cortisol Urine Color Urine Appearance Urine pH Ur Specific [place] Urine Protein Urine Ketones Urine Blood Urine Nitrate Urine Bilirubin Urine Urobilinogen Ur Leukocyte Esterase Urine Glucose Vital Signs: Temp Pulse Resp BP Pulse Ox 98.8 F 76 13 95/63 90 07/17/17 08:00 07/17/17 07:01 07/17/17 07:01 07/17/17 07:00 07/17/17 07:01 Exam: Gen: Well appearing, alert, cooperative, appropriate conversation HEENT: MMM CV: RRR, no m/r/g Resp: CTA, no w/c/r Abd: soft, nonTTP Extremities: trace to 1+ edema Skin: No rashes Neuro: mild dysarthria, no other gross deficits appreciated] Assessment: [This is an 82 yo male with stage IIIA lung SCC treated with concurrent chemoradiation. Presents with fever and hypotension, treated for septic shock. Still requiring pressor support] Plan: [1. Septic shock - unclear if he is truly infected, consider possible transfusion reaction from PRBCs? Blood cultures are negative at this time. CXR suggestive of possible infiltrate, but may be RT/malignancy related. Now has a mildly productive cough. Cont broad spectrum abx with Levaquin, Cefepime and Vanco. Can start to withdrawal abx, starting with Vanco when no longer requiring pressors. Cont hydrocortisone per marketing performance analyst, can start to taper in ~ 24 hrs. Further care per marketing performance analyst 2. NSTEMI with acute systolic heart failure - Likely demand mediated with known occlusive disease of the the LAD. Troponin trending down. EF 20-25% with severe dysfunction of the periapical region. Cardiology consult pending. No intervention planned. Heparin stopped. Anti-platelet agents held due to thrombocytopenia. Plan to repeat echo in 2-4 weeks to reassess EF 3. Pancytopenia - likely due to chemotherapy, counts are improved. No plans for additional transfusions at this time 4. NSCLC - completed RT with last cycle of carboplatin/pemetrexed scheduled for earlier this week, but held for cytopenias. Will reassess treatment following discharge. 5. Subacute ischemic CVA with residual dysarthria - consider resuming ASA when platelet count recovers. Will ask for speech therapy evaluation and recommend further outpatient services. Dispo: Anticipate likely transfer from ICU later today or tomorrow as pressors are tapered off. Oncology service will take over as attending following transfer to telemetry floor.]
[2017-07-17] MEDS ORDERED: Vancomycin Trough Check NOTE FOLLOW UP ONE (11:30)
[2017-07-17] MEDS ORDERED: Nitroglycerin TAB 0.4 MG* 0.4 MG TAB SL PRN (12:05)
--- NOTE | 2017-07-17 12:17 | PN ---
Date of Service: 07/17/17 Critical Care Services: No specific complaints. Up in chair and eating lunch. No evidence of an active infection, but he remains on levophed (8 mcg/min) Vital Signs: Temp Pulse Resp BP SpO2 FiO2 98.8 F 78 19 92/63 94 Physical Exam: Gen:Alert, oriented HEENT:OP clear. No JVD Lungs: Inspiratory crackles at both bases. No wheezes. Extremities: Warm. No cyanosis or edema. Fluid Balance (Past 24 Hours): 07/17/17 06:59 Intake Total 3057 Output Total 1975 Balance +1082 Weight 180 lb 1.6 oz Intake: IV Fluids 335 KVO +ABX 335 IVPB 1278 KVO +ABX 1278 Medicated IV 904 CC - Norepinephrine/ 762 Levophed Heparin 142 Oral 540 Output: Urine 125 Page 1850 Other: Date of Last Bowel 07/16/17 Movement # Bowel Movements 1 Estimated Stool Amount Large Labs: 07/16/17 07/16/17 07/17/17 06:12 15:32 06:00 Sodium 139 Potassium 3.8 Chloride 110 Carbon Dioxide 21 BUN 21 Creatinine 0.87 Glucose 174 H Calcium 8.7 Troponin I 3.29 H* 2.42 H* Cortisol 15.41 07/17/17 06:00 WBC 4.4 Hgb 8.4 Hct 24 MCV 98 Plt Count 52 Studies: Speech evaluation: 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 All cultures negative to date. Nutrition: Oral diet. Intake good. Impression: Appears clinically stable, yet continues to require a vasopressor. Plan: Will infuse fluid carefully, and start oral Rx with Midodrine (to increase BP). Cardiology consult for today. Critical Care Time: 35 minutes
[2017-07-17] MEDS: CMC:Midodrine (NF) 5 MG TAB PO SCH ×2 (15:03→20:49)
--- NOTE | 2017-07-17 15:43 | CONS ---
CC: Dr. Aditi Brown; Hospitalist Service; Dr. Vargas * CARDIOLOGY CONSULTATION NOTE: DATE OF CONSULT: 07/17/17 PRIMARY CARE PHYSICIAN: Dr. Vargas. REASON FOR CONSULT: Chest pain, elevated troponins and coronary artery disease. CHIEF CARDIOLOGY COMPLAINT: Anginal chest pain. HISTORY OF PRESENT ILLNESS: Mr. Moreno is an 82-year-old gentleman, who is undergoing radiation and chemotherapy for squamous cell carcinoma of the lung. He received 2 units of packed red blood cells and platelets on 07/15/17, went home and developed shaking rigors and chills with the temperature of 102 degrees and presented to the emergency department. He has been given a differential of transfusion reaction versus infection. The patient additionally had some chest discomfort and his troponins were elevated and an echocardiogram revealed a severe cardiomyopathy with an ejection fraction of 25%. The patient has known atherosclerotic heart disease with occluded LAD and right coronary artery on cath in 2008, dependent on collateral flows in the circumflex. He has been on medical management with Dr. Vargas since, but has not seen Dr. Toledo since 2008. 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 Recently, he has required nitroglycerin intermittently. He says he can go weeks without it, but then need some. It has now progressed to needing the nitroglycerin with stress from cold weather. According to his , he still continues to do chores that she feels are beyond him such as shoveling snow. The patient denies any chest discomfort since the night of admission. He says his breathing is comfortable. At home, he sleeps with the head of the bed elevated mildly because of snoring, not because of breathing and he denies PND. According to the patient and his , his metoprolol was discontinued by Dr. Brown 3 days ago because of low blood pressure in the chemo suite. He was on a statin in the past and was on aspirin until his chemotherapy was initiated. PAST MEDICAL HISTORY: 1. 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 He has undergone radiation therapy and is in the process of getting chemotherapy. Admitted with fevers, hypotension with possible septic shock versus transfusion reaction. 2. Coronary artery disease, cardiac catheterization in 2008 showed occluded LAD and occluded right coronary artery and good circumflex flow with mild to moderate cardiomyopathy. 3. Severe ischemic cardiomyopathy diagnosed in 2018, this admission. 4. TIA/CVA several weeks ago. 5. 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 6. Dyslipidemia. 7. Hypertension in the past. 8. Peripheral vascular disease of the carotids. PAST SURGICAL HISTORY: Includes: 1. Tonsillectomy. 2. Cataract extractions bilaterally. 3. Recent lung biopsy. MEDICATIONS: Current inpatient medications include: 1. Normal saline. 2. Tylenol p.r.n. 3. Albuterol nebulizer. 4. Xanax p.r.n. 5. Cefepime 2 g q.8 hours. 6. Colace 400 mg a day. 7. Solu-Cortef 100 mg q.8 hours. 8. Lactated Ringer's. 9. Levaquin 750 mg q.24 hours. 10. Melatonin p.r.n. sleep. 11. Midodrine 5 mg t.i.d. 12. Morphine p.r.n. 13. Prilosec 20 mg a day. 14. Zofran p.r.n. 15. Vancomycin. 16. Norepinephrine drip 5 mcg per minute. ALLERGIES: He has no known drug allergies. FAMILY HISTORY: Positive for stroke and diabetes. SOCIAL HISTORY: The patient has been , has a supportive , who is in the room during the exam. 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 He stopped smoking 40 years ago. No history of alcohol abuse. REVIEW OF SYSTEMS: See history of present illness. He does have anginal pain intermittently, brought on by physical exertion, cold weather for which he takes sublingual nitroglycerin, mild orthopnea. No PND. He has lost weight of 40 pounds during the chemotherapy. His appetite now is coming back and improving. No recent diarrhea or constipation. Fevers and chills as above that have resolved since admission. Some difficulty talking for long periods of time. He had some transient lower extremity edema that is improving. PHYSICAL EXAMINATION: On exam, the patient is 5 feet 11 inches, weighs 180 pounds with a BMI of 25. Vitals currently: Blood pressure 86/54, pulse of 70, respiratory rate of 13 to 25, oxygen saturation 96% on room air. T-max 98.8 today, was 101 on the . On exam, the patient is an elderly gentleman, seated in a hospital recliner chair, in no acute distress. Psychologically, pleasant and cooperative. Neurologically, awake, alert, and oriented to person , place, and time. Speech is articulate. Comprehension is good. Follows commands well in the chair. No gross motor deficits in the chair, and I did not check sensory of the extremities. Skin: A little pale, warm, dry. No appreciable cyanosis. HEENT: Pupils are equal and round. Mucous membranes moderately moist. Neck: Without thyromegaly or lymphadenopathy. Breath sounds , he had some rhonchi and rales in the bases, left greater than the right. Upper lung stone have good air movement. No wheezing. Coronary: A bit distant S1, S2. Regular. I could not appreciate murmurs. Abdomen: No appreciable hepatomegaly in the somewhat reclined seated position. Lower extremities showed trace to mild edema in the feet and ankles. DIAGNOSTIC STUDIES/LAB DATA: White count 4.4, hemoglobin 8.4, hematocrit 24, platelets 52,000. INR 1.15. PTT 22. Sodium 139, potassium 3.8, glucose 110, BUN 21, glucose 174, BUN 21, creatinine 0.87. Troponin #1 was 4.24, troponin # 2 was 3.85, troponin #3 of 3.29, and troponin #4 today 2.42. BNP is 1354, cortisol 15.41. Urinalysis unremarkable. Leukocytes negative. Ketones negative. Protein negative. Nitrite negative. Serologies were negative for influenza A and B. Chest x-ray showed some interstitial edema, no pneumothorax. EKG from 07/16/17 shows normal sinus rhythm, 90 beats a minute with a first degree AV block and a right bundle branch block. Inverted T waves V1 through V3 , flattened T waves in the lateral leads and inferior leads T waves are flattened and inverted, all nonspecific. The patient's echocardiogram done 07/16/17 shows an ejection fraction of 20% to 25%. Normal right ventricular systolic function. Mild aortic stenosis. Moderate mitral insufficiency. Moderate tricuspid insufficiency and severe elevation in PA pressure of 59 mmHg, no old echo to compare. Cardiac catheterization from 09/07/08 showed an occluded LAD, occluded right coronary artery, the circumflex had 80% stenosis on the proximal obtuse marginal 1. The circumflex itself was free of significant disease. Medical management was recommended, although at that time he had only had mild decrease in LV systolic function. CONCLUSION: Juan J Moreno is an 82-year-old gentleman being treated for stage IIIA squamous cell carcinoma of the lung who has undergone radiation therapy and chemotherapy and was admitted with fevers, rigors, chills, hypotension, and at that time, was having chest pain, elevated troponins and found to have a severe cardiomyopathy. The patient just recently had metoprolol discontinued. He has been off aspirin for a while due to low counts from his chemo and has not had a statin given this admission. With respect to the patient's severe cardiomyopathy and severe 2-vessel coronary artery disease which may have progressed since 2008, optimization of management is going to be complicated by his hypotension, low platelet counts. For the coronary artery disease, he is not a candidate for aspirin or antiplatelet agent at this time nor do I feel he is a good candidate for a heparin drip or other forms of anticoagulation. When his blood pressure tolerates, I would resume a low dose Toprol. We can start at 12.5 mg and titrate up to 25 if and when his blood pressure will tolerate, this would be to minimize recurrent ischemia including demand ischemia. I would initiate a statin unless contraindications due to chemo interactions. For the cardiomyopathy, hypotension is limiting our options. As above, I would initiate metoprolol when able. If able in the future with blood pressure, I would consider initiation of a statin. We could do a very low dose ramipril which has less impact on blood pressure than some other medications. Angina. For recurrent angina, options would include a nitroglycerin patch which may be more gentle than sublingual nitroglycerin as needed. Additional options which may be better tolerated with hypotension would be Covera. This can benefit both congestive heart failure and has off label benefit for angina. For the patient's current hypotension and elevated PA pressures, this is going to be difficult to manage. I agree with the midodrine and gentle hydration, but he is at risk for worsening elevation in PA pressures with more aggressive IV hydration. Compression stockings could help. If not contraindicated in the setting of chemotherapy, he may be better with packed red blood cells than crystalloid for improvement of blood pressure and minimizing stress to the myocardium with his anemia. For his history of transient ischemic attack and stroke, again anticoagulation is contraindicated, but with the severely depressed ejection fraction, he is at risk of cardioembolic stroke. In addition, with his history of carotid disease , he is at risk for stroke from [employer] plaque, so for now, we will hold off on anticoagulation, but an antiplatelet agent may be wanted to be considered in the future once his counts are back. I spend considerable time discussing with the patient and his the difficulties in managing him acutely, that we would proceed with supportive care and that management of his cardiomyopathy, atherosclerotic and peripheral vascular disease, would likely change control analyst the next few weeks as he recovered from chemo. According to them, he has only one more chemo treatment left and he has completed radiation therapy. We will follow with you and I recommended to the patient that he be followed again by Cardiology on a regular outpatient basis in addition to this inpatient consultation. Thank you for allowing me to assist with this nice gentleman's care. [id number]/[facility] #: [id number] KI
[2017-07-17] MEDS: CMCS: Melatonin (NF) 3 MG TAB PO PRN (20:49)
[2017-07-18] MEDS: NS 0.9% 250 ML* 246 ML with Norepinephrine VIAL* 4 MG IV SCH ×2 (01:22)
[2017-07-18] MEDS: Vancomycin(*) 750 MG in NS 0.9% 250 ML* 250 ML IVPB SCH (03:37)
[2017-07-18] MEDS: Cefepime 2 GM in Dextrose(*) 2 GM/50 ML BAG IV SCH (04:44)
[2017-07-18] MEDS: Levofloxacin 750 MG IVPREMIX(* 750 MG/150 ML BAG IVPB SCH (05:13)
[2017-07-18] MEDS: Omeprazole CAP* 20 MG PO SCH (06:18)
[2017-07-18 07:03] LABS: EGFR Non-African American 82.2 (>60)
[2017-07-18 07:18] LABS: Hematocrit 24 % (42-52); Hemoglobin 8.3 g/dl (14.0-18.0); Mean Corpuscular HGB Conc 35 g/dl (31-36); Mean Corpuscular Hemoglobin 34 pg (27-31); Mean Corpuscular Volume 98 fL (80-94); Platelet Count 55 10^3/ul (150-450); Red Blood Count 2.46 10^6/ul (4.0-5.4); Red Cell Distribution Width 28 % (10.5-15); White Blood Count 4.7 10^3/ul (3.5-10.8)
[2017-07-18 07:44] LABS: ABS Basophils 0 10^3/ul (0-0.2); ABS Eosinophils 0 10^3/ul (0-0.6); ABS Lymphocytes 0.3 10^3/ul (1.0-4.8); ABS Monocytes 0.7 10^3/ul (0-0.8); ABS Neutrophils 3.7 10^3/ul (1.5-7.7); ABS Nucleated RBC 0 10^3/ul; Eosinophil % 0.2 % (0-6); Lymphocyte % 6.4 % (25-47); Nucleated Red Blood Cells % 0.2
[2017-07-18] MEDS ORDERED: Digoxin IV* 0.5 MG/2 ML AMP (0.25 MG/ML) IV SLOW PU ONE ×2 (08:24→17:36)
--- NOTE | 2017-07-18 08:39 | RAD ---
HISTORY: Pneumonia versus CHF COMPARISONS: July 16, 2017 VIEWS: 1: frontal portable view of the chest at 5:53 AM FINDINGS: LINES AND TUBES: The right internal jugular venous catheter is noted with the tip overlying the superior vena cava. CARDIOMEDIASTINAL SILHOUETTE: The cardiomediastinal silhouette is normal for portable technique. PLEURA: The costophrenic angles are sharp. No pleural abnormalities are noted. LUNG PARENCHYMA: There is a diffuse reticular pattern with indistinct pulmonary vessels. There is more confluent alveolar opacification of the right upper lung, right lower lung, and left lower lung that has progressed from the previous examination. ABDOMEN: The upper abdomen is clear. There is no subphrenic gas. BONES AND SOFT TISSUES: No bone or soft tissue abnormalities are noted. IMPRESSION: 1. LINES AND TUBES ABOVE. 2. PULMONARY INTERSTITIAL EDEMA. 3. DEVELOPING CONSOLIDATION OF THE RIGHT UPPER LUNG, RIGHT LOWER LUNG, LEFT LOWER LUNG
--- NOTE | 2017-07-18 09:30 | PN ---
Subjective Date of Service: 07/18/17 Interval History: f/u NH, ischemic cardiomyopathy no chest discomfort did not sleep well but says was not due to dyspnea Medications Active Medications: Acetaminophen (Tylenol Tab*) 650 mg PO Q6H PRN PRN Reason: FEVER/PAIN Albuterol (Ventolin 2.5 Mg/3 Ml Neb.Leslie*) 2.5 mg INH Q2H PRN PRN Reason: SOB/WHEEZING Alprazolam (Xanax Tab*) 0.25 mg PO Q6H PRN PRN Reason: ANXIETY Digoxin (Lanoxin Tab*) 0.125 mg PO EVERY OTHER DAY [facility] Docusate Sodium (Colace Cap*) 200 mg PO BID [facility] Last Admin: 07/17/17 20:49 Dose: 200 mg Heparin Sodium (Porcine) (Heparin Vial(*)) 0 units IV .FOR BOLUSES PRN PRN Reason: HEPARIN DRIP BOLUSES Last Admin: 07/16/17 06:32 Dose: 4,000 units Levofloxacin/Dextrose (Levaquin 750 Mg Ivpremix(*)) 750 mg in 150 mls @ 100 mls /hr IVPB Q24H [facility] Last Admin: 07/18/17 05:13 Dose: 100 mls/hr Cefepime HCl (Maxipime 2 Gm In Dextrose Duplex (*)) 2 gm in 50 mls @ 100 mls/ hr IV Q8H [facility] Last Admin: 07/18/17 04:44 Dose: 100 mls/hr Vancomycin HCl 750 mg/ Sodium (Chloride) 250 mls @ 166.667 mls/hr IVPB Q8H [facility] Last Admin: 07/18/17 03:37 Dose: 166.667 mls/hr Norepinephrine Bitartrate 4 mg (/ Sodium Chloride) 250 mls @ 18.75 mls/hr IV .INITIAL RATE [facility]; 5 MCG/MIN PRN Reason: Protocol Last Admin: 07/18/17 01:22 Dose: 18.75 mls/hr Melatonin (Melatonin (Nf)) 3 mg PO BEDTIME PRN; Protocol PRN Reason: Sleep Last Admin: 07/17/17 20:49 Dose: 3 mg Midodrine (Midodrine (Nf)) 5 mg PO TID [facility] PRN Reason: Protocol Last Admin: 07/17/17 20:49 Dose: 5 mg Morphine Sulfate (Morphine Inj (Syringe)*) 2 mg IV Q4H PRN PRN Reason: PAIN - MILD Last Admin: 07/16/17 08:51 Dose: 2 mg Nitroglycerin (Nitroglycerin Tab 0.4 Mg*) 0.4 mg SL Q5M PRN PRN Reason: ANGINA Omeprazole (Prilosec Cap*) 20 mg PO DAILY@0600 [facility] Last Admin: 07/18/17 06:18 Dose: 20 mg Ondansetron HCl (Zofran Inj*) 4 mg IV Q6H PRN PRN Reason: NAUSEA Pharmacy Consult (Vancomycin Per Pharmacy*) 1 note FOLLOW UP .VANC PER PHARMACY [facility] Objective Vital Signs: Temp Pulse Resp BP Pulse Ox 97.5 F 78 22 95/50 96 07/18/17 07:50 07/18/17 09:01 07/18/17 09:01 07/18/17 09:00 07/18/17 09:01 Oxygen Devices in Use Now: Nasal Cannula Appearance: nad, pleasant Ears/Nose/Mouth/Throat: Clear Oropharnyx Neck: - - uncertain jvp Respiratory: Symmetrical Chest Expansion and Respiratory Effort, - - crackles left base Cardiovascular: RRR, - - no significant murmur Abdominal: NL Sounds; No Tenderness; No Distention Extremities: - - adequately perfused, 1+ edema Neurological: Alert and Oriented x 3 Laboratory Results: 07/18/17 06:26 07/18/17 06:26 INR (Anticoag Therapy) 1.15 (0.77-1.02) H 07/16/17 01:27 APTT 33.3 seconds (26.0-36.3) 07/16/17 04:59 Total Bilirubin 0.80 mg/dL (0.2-1.0) 07/16/17 01:27 AST 42 U/L (13-39) H 07/16/17 01:27 ALT 17 U/L (7-52) 07/16/17 01:27 Alkaline Phosphatase 60 U/L (34-104) 07/16/17 01:27 B-Natriuretic Peptide 1354 pg/mL (-100) H 07/16/17 01:27 Total Protein 5.9 g/dL (6.4-8.9) L 07/16/17 01:27 Albumin 3.3 g/dL (3.2-5.2) 07/16/17 01:27 Globulin 2.6 g/dL (2-4) 07/16/17 01:27 Albumin/Globulin Ratio 1.3 (1-3) 07/16/17 01:27 07/16/17 07/16/17 07/17/17 06:12 15:32 06:00 Troponin I 3.85 H* 3.29 H* 2.42 H* Diagnostic Imaging: cardiac catheterization in 2008 showed occluded LAD and occluded right coronary artery and good circumflex flow with mild cardiomyopathy. Assessment/Plan Mr. Moreno is an 82-year-old man hx recent TIA/CVA, PAD, admitted with a type 2 NH and severe ischemic cardiomyopathy in the setting of radiation and chemotherapy for squamous cell carcinoma of the lung possible transfusion reaction vs. sepsis and anemia, LVEF 25%. Currently without angina has been leveophed dependent for low BP. - Restart aspirin whenever ok from a hematology standpoint - Would start statin if no contraindication - Given digoxin 0.5 mg IV x 1 now and start 0.125 mg po every other day and wean levophed to d/c (ordered) - Keep I/0 negative as tolerated - Ideally hemoglobin would be ~ 9 or greater - Pending above we may be able to start low dose toprol soon. Thank you for allowing me to participate in the cardiovascular care of this patient. Please do not hesitate to contact me with questions or concerns.
[2017-07-18] MEDS: CMC:Midodrine (NF) 5 MG TAB PO SCH ×3 (09:37→20:31)
[2017-07-18] MEDS: Docusate CAP* 100 MG PO SCH (09:37)
--- NOTE | 2017-07-18 10:15 | PN ---
Progress Note - Progress Note Date of Service: 07/18/17 SOAP: Subjective: feeling well this morning. did not sleep good but denies any SOB, chest pain, chills, diarrhea, nausea or vomiting. pressors turned off this am. Objective: Vital Signs Temp Pulse Resp BP Pulse Ox 97.5 F 83 24 92/47 97 07/18/17 07:50 07/18/17 10:00 07/18/17 10:00 07/18/17 10:00 07/18/17 10:00 perr eomi op moist crackles left base irr irr soft nt +bs 1+ LUE edema no LE edema speach apraxia Laboratory Results - last 24 hr 07/17/17 07/18/17 07/18/17 11:59 06:26 06:26 WBC 4.7 RBC 2.46 L Hgb 8.3 L Hct 24 L MCV 98 H MCH 34 H MCHC 35 RDW 28 H Plt Count 55 L MPV 8.0 Neut % (Auto) 78.3 Lymph % (Auto) 6.4 L [place] % (Auto) 15.0 H Eos % (Auto) 0.2 Baso % (Auto) 0.1 Absolute Neuts (auto) 3.7 Absolute Lymphs (auto) 0.3 L Absolute Monos (auto) 0.7 Absolute Eos (auto) 0 Absolute Basos (auto) 0 Absolute Nucleated RBC 0 Nucleated RBC % 0.2 Sodium 142 Potassium 3.3 L Chloride 113 H Carbon Dioxide 23 Anion Gap 6 BUN 22 Creatinine 0.89 Est GFR ( Amer) 105.8 Est GFR (Non-Af Amer) 82.2 BUN/Creatinine Ratio 24.7 H Glucose 119 H Calcium 8.8 Vancomycin Trough 13.0 Acetaminophen (Tylenol Tab*) 650 mg PO Q6H PRN PRN Reason: FEVER/PAIN Albuterol (Ventolin 2.5 Mg/3 Ml Neb.Leslie*) 2.5 mg INH Q2H PRN PRN Reason: SOB/WHEEZING Alprazolam (Xanax Tab*) 0.25 mg PO Q6H PRN PRN Reason: ANXIETY Aspirin (Ecotrin Ec Tab*) 325 mg PO DAILY [facility] Digoxin (Lanoxin Tab*) 0.125 mg PO EVERY OTHER DAY [facility] Docusate Sodium (Colace Cap*) 200 mg PO BID [facility] Last Admin: 07/18/17 09:37 Dose: 200 mg Heparin Sodium (Porcine) (Heparin Vial(*)) 0 units IV .FOR BOLUSES PRN PRN Reason: HEPARIN DRIP BOLUSES Last Admin: 07/16/17 06:32 Dose: 4,000 units Levofloxacin/Dextrose (Levaquin 750 Mg Ivpremix(*)) 750 mg in 150 mls @ 100 mls /hr IVPB Q24H [facility] Last Admin: 07/18/17 05:13 Dose: 100 mls/hr Cefepime HCl (Maxipime 2 Gm In Dextrose Duplex (*)) 2 gm in 50 mls @ 100 mls/ hr IV Q8H [facility] Last Admin: 07/18/17 04:44 Dose: 100 mls/hr Vancomycin HCl 750 mg/ Sodium (Chloride) 250 mls @ 166.667 mls/hr IVPB Q8H [facility] Last Admin: 07/18/17 03:37 Dose: 166.667 mls/hr Norepinephrine Bitartrate 4 mg (/ Sodium Chloride) 250 mls @ 18.75 mls/hr IV .INITIAL RATE COLE; 5 MCG/MIN PRN Reason: Protocol Last Admin: 07/18/17 01:22 Dose: 18.75 mls/hr Melatonin (Melatonin (Nf)) 3 mg PO BEDTIME PRN; Protocol PRN Reason: Sleep Last Admin: 07/17/17 20:49 Dose: 3 mg Midodrine (Midodrine (Nf)) 5 mg PO TID [facility] PRN Reason: Protocol Last Admin: 07/18/17 09:37 Dose: 5 mg Morphine Sulfate (Morphine Inj (Syringe)*) 2 mg IV Q4H PRN PRN Reason: PAIN - MILD Last Admin: 07/16/17 08:51 Dose: 2 mg Nitroglycerin (Nitroglycerin Tab 0.4 Mg*) 0.4 mg SL Q5M PRN PRN Reason: ANGINA Omeprazole (Prilosec Cap*) 20 mg PO DAILY@0600 [facility] Last Admin: 07/18/17 06:18 Dose: 20 mg Ondansetron HCl (Zofran Inj*) 4 mg IV Q6H PRN PRN Reason: NAUSEA Pharmacy Consult (Vancomycin Per Pharmacy*) 1 note FOLLOW UP .VANC PER PHARMACY [facility] Assessment: 82 yo vasculopath on combined modality chemoRT for stage III SCC of the lung presenting with hypotension, fevers, and septic shock of unclear source. Notably hypotension started before fevers, and fevers persisted >12 hours after transfusion and so I do NOT suspect that this was all a transfusion reaction. Regardless, he is improving and is finally off of pressors. Plan: -if maintains independence from pressors for next 8 hrs or so can transfer to floor (Dr. Hernández to pull central line prior) -per cards continue midodrine through today and if pressure maintains can likely stop tomorrow -cont digoxin -resume ASA -start statin (lipitor 80mg) -cont abx x 1 more day and if cultures remain negative and afebrile will stop tomorrow -replete K today, goal >4, check mag DNR
[2017-07-18] MEDS ORDERED: KCL 20 MEQ/100 ML IVPREMIX* 20 MEQ/100 ML BAG IV ONE (10:16)
[2017-07-18] MEDS ORDERED: Potassium Chloride IV* 20 MEQ in NS 0.9% 100 ML* 100 ML IVPB ONE (10:30)
[2017-07-18] MEDS: Potassium Chlor TAB* 20 MEQ TAB.ER PO SCH ×2 (10:47→20:31)
[2017-07-18] MEDS: Aspirin EC TAB* 325 MG PO SCH (10:47)
[2017-07-18] MEDS: Enoxaparin(*) 40 MG/0.4 ML SYR SUBCUT SCH (12:27)
[2017-07-18] MEDS ORDERED: Magnesium Sulf 4 GM/100 ML IV* 4,000 MG/100 ML BAG IVPB ONE (13:00)
--- NOTE | 2017-07-18 13:36 | PN ---
Date of Service: 07/18/17 Critical Care Services: Off levophed this AM and maintaining adequate BP. Continues to look good clinically. Vital Signs: Temp Pulse Resp BP SpO2 FiO2 97.8 F 99 24 92/52 94 Physical Exam: Gen:Alert, oriented, up in chair and breathing comfortably. Lungs: occasional crackles at both bases. no wheezes. Abdomen: Not distended Extremities: No cyanosis or edema. Fluid Balance (Past 24 Hours): 07/18/17 06:59 Intake Total 2681.3 Output Total 1125 Balance 1556.3 Weight 182 lb Intake: IV Fluids 338 ABX - CEFEPIME 103 KVO +ABX 235 IVPB 1142 KVO +ABX 1142 Medicated IV 541.3 CC - Norepinephrine/ 541.3 Levophed Heparin Oral 660 Output: Urine Page 1125 Other: Date of Last Bowel Movement # Bowel Movements Estimated Stool Amount Labs: 07/18/17 07/18/17 07/18/17 06:26 06:26 06:26 WBC 4.7 RBC 2.46 L Hgb 8.3 Hct 24 MCV 98 H MCH 34 H MCHC 35 RDW 28 H Plt Count 55 L Sodium 142 Potassium 3.3 L Chloride 113 H Carbon Dioxide 23 Anion Gap 6 BUN 22 Creatinine 0.89 Glucose 119 H Calcium 8.8 Magnesium 1.4 L Blood Type O Positive Antibody Screen Negative Crossmatch See Detail Studies: CXR: Interstitial edema bilaterally Nutrition: Oral diet Impression: 1. Hemodynamically better after midodrine. I suspect this patient has autonomic dysfunction as a source of the low BP (in combination with low cardiac output). 2. Neuropenia has resolved but thrombocytopenia persists. 3. Continues to have evidence of pulmonary congestion (unable to diurese up to now because of hypotension) Plan: 1. Per cardiology, will start digoxin (for advanced systolic heart failure) and transfuse one unit PRBCs (to target Hb of 9 g/dL). 2. If BP remains adequate, will start diuretic Rx 3. If cultures remain negative, will D/C antibiotics. 4. Remainder of care per Dr. Brown
[2017-07-18] MEDS: Atorvastatin* 80 MG TAB PO SCH (17:57)
[2017-07-19] MEDS: Morphine INJ* 2 MG/ML 1 ML CARPUJECT IV PRN (01:29)
[2017-07-19] MEDS: Omeprazole CAP* 20 MG PO SCH (06:03)
[2017-07-19] MEDS: Potassium Chlor TAB* 20 MEQ TAB.ER PO SCH ×2 (08:17→20:44)
[2017-07-19] MEDS: Aspirin EC TAB* 325 MG PO SCH (08:17)
[2017-07-19] MEDS: CMC:Midodrine (NF) 5 MG TAB PO SCH ×3 (08:17→20:45)
[2017-07-19] MEDS ORDERED: Furosemide IV* 10 MG/ML 2 ML VIAL (20 MG) IV ONE (08:34)
[2017-07-19 08:39] LABS: Hematocrit 28 % (42-52); Hemoglobin 9.5 g/dl (14.0-18.0); Mean Corpuscular HGB Conc 34 g/dl (31-36); Mean Corpuscular Hemoglobin 33 pg (27-31); Mean Corpuscular Volume 98 fL (80-94); Mean Platelet Volume 7.8 um3 (7.4-10.4); Platelet Count 47 10^3/ul (150-450); Red Blood Count 2.85 10^6/ul (4.0-5.4); Red Cell Distribution Width 26 % (10.5-15); White Blood Count 3.6 10^3/ul (3.5-10.8)
[2017-07-19 08:41] LABS: EGFR Non-African American 86.7 (>60)
--- NOTE | 2017-07-19 08:52 | PN ---
Progress Note - Progress Note Date of Service: 07/19/17 SOAP: Subjective: [Patient offers no new complaints this am. He has been quite dyspneic with transfers from bed to recliner. Notes from yesterday indicated that he was hypoxic into the mid 80s while working with PT. No cough. Pressors have been stopped, BP relatively stable with addition of midodrine. Hydrocortisone discontinued. Abx have been stopped as cultures are all reported negative. ] Objective: [ Albuterol (Ventolin 2.5 Mg/3 Ml Neb.Leslie*) 2.5 mg INH Q2H PRN PRN Reason: SOB/WHEEZING Alprazolam (Xanax Tab*) 0.25 mg PO Q6H PRN PRN Reason: ANXIETY Aspirin (Ecotrin Ec Tab*) 325 mg PO DAILY [facility] Last Admin: 07/19/17 08:17 Dose: 325 mg Atorvastatin Calcium (Lipitor*) 80 mg PO 1700 [facility] Last Admin: 07/18/17 17:57 Dose: 80 mg Digoxin (Lanoxin Tab*) 0.125 mg PO EVERY OTHER DAY [facility] Last Admin: 07/19/17 08:17 Dose: 0.125 mg Enoxaparin Sodium (Lovenox(*)) 40 mg SUBCUT Q24H [facility] Last Admin: 07/18/17 12:27 Dose: 40 mg Furosemide (Lasix Iv*) 20 mg IV ONCE ONE Stop: 07/19/17 08:35 Midodrine (Midodrine (Nf)) 5 mg PO TID [facility] PRN Reason: Protocol Last Admin: 07/19/17 08:17 Dose: 5 mg Morphine Sulfate (Morphine Inj (Syringe)*) 2 mg IV Q4H PRN PRN Reason: PAIN - MILD Last Admin: 07/19/17 01:29 Dose: 2 mg Nitroglycerin (Nitroglycerin Tab 0.4 Mg*) 0.4 mg SL Q5M PRN PRN Reason: ANGINA Omeprazole (Prilosec Cap*) 20 mg PO DAILY@0600 [facility] Last Admin: 07/19/17 06:03 Dose: 20 mg Potassium Chloride (Klor Con Er Tab*) 20 meq PO BID [facility] Last Admin: 07/19/17 08:17 Dose: 20 meq Laboratory Results - last 24 hr Labs 07/19 pending... 07/18/17 07/18/17 07/19/17 06:26 06:26 06:25 Sodium 142 Potassium 3.3 L Chloride 113 H Carbon Dioxide 23 Anion Gap 6 BUN 22 Creatinine 0.89 Est GFR ( Amer) 105.8 Est GFR (Non-Af Amer) 82.2 BUN/Creatinine Ratio 24.7 H Glucose 119 H Calcium 8.8 Magnesium 1.4 L 1.7 L Blood Type O Positive Antibody Screen Negative Crossmatch See Detail Vital Signs: Temp Pulse Resp BP Pulse Ox 98.9 F 101 18 103/63 92 07/19/17 08:00 07/19/17 08:17 07/19/17 08:15 07/19/17 08:00 07/19/17 08:15 Assessment: [This is an 82 yo male with stage IIIA lung SCC treated with concurrent chemoradiation. Presents with fever and hypotension, treated for septic shock and NSTEMI. Cultures all negative. Severe systolic dysfunction with persistent hypotension.] Plan: [1. Hypotension and fever - cultures all negative. Seems less likely to be septic shock. Hypotension preceeded fever. Low cardiac output likely responsible for persistent hypotension. Improving with midodrine. 2. NSTEMI with acute systolic heart failure - Likely demand mediated with known occlusive disease of the the LAD. Troponin trending down. EF 20-25% with severe dysfunction of the periapical region. Cardiology input greatly appreciated. No intervention planned. Heparin stopped. ASA resumed yesterday. Can repeat echo in 2-4 weeks to reassess EF 3. Pancytopenia - likely due to chemotherapy, counts are improving. If Hgb still <9 g/dl today will transfuse one additional unit of blood with additional Lasix. 4. Hypoxia/dyspnea - no evidence of PNA. Some pulm edema secondary to CHF. Hypotension has been complicating management. Will trial gentle diuresis with close attention to BP. 4. NSCLC - completed RT with last cycle of carboplatin/pemetrexed scheduled for earlier this week, but held for cytopenias. Will reassess treatment following discharge. 5. Subacute ischemic CVA with residual dysarthria - ASA restarted. Continue speech, PT, OT. Dispo: Transfer to telemetry floor today. Patient is motivated to get home, but may require RAJIV.]
[2017-07-19] MEDS ORDERED: Magnesium Sulfate 2 GM IV* 2 GM/50 ML BAG IVPB ONE (08:53)
[2017-07-19] MEDS ORDERED: Digoxin TAB* 0.125 MG PO SCH (09:00)
[2017-07-19 09:23] LABS: ABS Basophils 0 10^3/ul (0-0.2); ABS Eosinophils 0.1 10^3/ul (0-0.6); ABS Lymphocytes 0.3 10^3/ul (1.0-4.8); ABS Monocytes 0.7 10^3/ul (0-0.8); ABS Neutrophils 2.5 10^3/ul (1.5-7.7); ABS Nucleated RBC 0 10^3/ul; Eosinophil % 2.6 % (0-6); Lymphocyte % 7.1 % (25-47); Nucleated Red Blood Cells % 0.3
[2017-07-19] MEDS: Enoxaparin(*) 40 MG/0.4 ML SYR SUBCUT SCH (11:17)
--- NOTE | 2017-07-19 18:54 | PN ---
Subjective Date of Service: 07/19/17 - CC: weakness Interval History: The patient denies SOB now (seated and eating) No chest pain. No recurrence of fevers/chills he had on admission. Medications Active Medications: Albuterol (Ventolin 2.5 Mg/3 Ml Neb.Leslie*) 2.5 mg INH Q2H PRN PRN Reason: SOB/WHEEZING Alprazolam (Xanax Tab*) 0.25 mg PO Q6H PRN PRN Reason: ANXIETY Aspirin (Ecotrin Ec Tab*) 325 mg PO DAILY [facility] Last Admin: 07/19/17 08:17 Dose: 325 mg Atorvastatin Calcium (Lipitor*) 80 mg PO 1700 [facility] Last Admin: 07/18/17 17:57 Dose: 80 mg Digoxin (Lanoxin Tab*) 0.125 mg PO EVERY OTHER DAY [facility] Last Admin: 07/19/17 08:17 Dose: 0.125 mg Enoxaparin Sodium (Lovenox(*)) 40 mg SUBCUT Q24H [facility] Last Admin: 07/19/17 11:17 Dose: 40 mg Midodrine (Midodrine (Nf)) 5 mg PO TID [facility] PRN Reason: Protocol Last Admin: 07/19/17 13:53 Dose: 5 mg Morphine Sulfate (Morphine Inj (Syringe)*) 2 mg IV Q4H PRN PRN Reason: PAIN - MILD Last Admin: 07/19/17 01:29 Dose: 2 mg Nitroglycerin (Nitroglycerin Tab 0.4 Mg*) 0.4 mg SL Q5M PRN PRN Reason: ANGINA Omeprazole (Prilosec Cap*) 20 mg PO DAILY@0600 [facility] Last Admin: 07/19/17 06:03 Dose: 20 mg Potassium Chloride (Klor Con Er Tab*) 20 meq PO BID [facility] Last Admin: 07/19/17 08:17 Dose: 20 meq Objective Vital Signs: Temp Pulse Resp BP Pulse Ox 97.5 F 99 16 97/53 97 07/19/17 15:16 07/19/17 15:16 07/19/17 15:16 07/19/17 15:16 07/19/17 15:16 Oxygen Devices in Use Now: Nasal Cannula Appearance: Seated, eating dinner, color improved, appears comfortable. Eyes: No Scleral Icterus, PERRLA Ears/Nose/Mouth/Throat: Clear Oropharnyx Neck: Trachea Midline, No Thyroid Enlargement, Masses, - Respiratory: - - crackles in very bases, improved c/w Saturday. Cardiovascular: RRR, - Abdominal: NL Sounds; No Tenderness; No Distention Extremities: - - LUE swollen, edemetous. No cording or infection at IV sites. Clubbing of fingers noted. Neurological: Alert and Oriented x 3 Lines/Tubes/Other Access: Clean, Dry and Intact Peripheral IV Laboratory Results: 07/19/17 08:00 07/19/17 08:00 INR (Anticoag Therapy) 1.15 (0.77-1.02) H 07/16/17 01:27 APTT 33.3 seconds (26.0-36.3) 07/16/17 04:59 Total Bilirubin 0.80 mg/dL (0.2-1.0) 07/16/17 01:27 AST 42 U/L (13-39) H 07/16/17 01:27 ALT 17 U/L (7-52) 07/16/17 01:27 Alkaline Phosphatase 60 U/L (34-104) 07/16/17 01:27 B-Natriuretic Peptide 1354 pg/mL (-100) H 07/16/17 01:27 Total Protein 5.9 g/dL (6.4-8.9) L 07/16/17 01:27 Albumin 3.3 g/dL (3.2-5.2) 07/16/17 01:27 Globulin 2.6 g/dL (2-4) 07/16/17 01:27 Albumin/Globulin Ratio 1.3 (1-3) 07/16/17 01:27 07/16/17 07/16/17 07/17/17 06:12 15:32 06:00 Troponin I 3.85 H* 3.29 H* 2.42 H* Diagnostic Imaging: cardiac catheterization in 2008 showed occluded LAD and occluded right coronary artery and good circumflex flow with mild cardiomyopathy. ECHO 07/16/17: mild LVH, EF 25%, mild , mod MR, TR, PApr 60 mmHg. EKG Data: Monitor: ST 110 bpm. Assessment/Plan Mr. Moreno is an 82-year-old man hx recent TIA/CVA, PAD, admitted with a type 2 [place] and severe ischemic cardiomyopathy in the setting of radiation and chemotherapy for stage III a squamous cell carcinoma of the lung possible transfusion reaction and/or sepsis and anemia, LVEF 25%. BP's very low at admission and prior to admission. Elevated PA pressure as well. Midodrine has improved the patient's BP and overall much improved on exam. Other cardiac medications: Digoxen, lipator, ASA. Aware pt. going home soon, possibly tomorrow. Will try adding Toprol XL 12.5 mg/day in AM tomorrow. This patient should follow up with cardiology to titrate medications, follow cardiomyopathy, pulmonary hypertension and ischemic heart disease.
[2017-07-19] MEDS: Atorvastatin* 80 MG TAB PO SCH (20:44)
[2017-07-20 06:00] LABS: ABS Basophils 0 10^3/ul (0-0.2); ABS Eosinophils 0.1 10^3/ul (0-0.6); ABS Lymphocytes 0.3 10^3/ul (1.0-4.8); ABS Neutrophils 2.7 10^3/ul (1.5-7.7); ABS Nucleated RBC 0 10^3/ul; Eosinophil % 3.2 % (0-6); Hematocrit 29 % (42-52); Hemoglobin 10.1 g/dl (14.0-18.0); Lymphocyte % 8.2 % (25-47); Mean Corpuscular HGB Conc 35 g/dl (31-36); Mean Corpuscular Hemoglobin 34 pg (27-31); Mean Corpuscular Volume 97 fL (80-94); Mean Platelet Volume 7.7 um3 (7.4-10.4); Nucleated Red Blood Cells % 0.1; Platelet Count 56 10^3/ul (150-450); Red Blood Count 2.95 10^6/ul (4.0-5.4); Red Cell Distribution Width 26 % (10.5-15); White Blood Count 4.1 10^3/ul (3.5-10.8)
[2017-07-20 06:14] LABS: EGFR Non-African American 74.5 (>60)
[2017-07-20] MEDS: Omeprazole CAP* 20 MG PO SCH (06:16)
--- NOTE | 2017-07-20 07:51 | DS ---
- Discharge Summary ADMIT DATE: 07/16/17 DISCHARGE DATE:07/20/17 DISCHARGE DIAGNOSIS: 1. sepsis, unclear source 2. type 2 [place] 3. acute systolic heart failure exacerbation 4. stage III lung cancer getting chemotherapy 5. chemotherapy induced pancytopenia DISCHARGE MEDICATIONS: Home Medications Medication Instructions Recorded Confirmed Type Aspirin TAB* [Aspirin 325 MG TAB*] 325 mg PO DAILY PRN 06/26/17 06/26/17 History Cyanocobalamin TAB* [Vitamin B12 500 mcg PO DAILY 06/26/17 06/26/17 History TAB*] Folic Acid TAB* [Folvite TAB*] 1 mg PO DAILY 06/26/17 06/26/17 History Nitroglycerin TAB 0.4 MG* 0.4 mg SL Q5M PRN 06/26/17 06/26/17 History Rosuvastatin (NF) [Crestor (NF)] 20 mg PO DAILY 06/26/17 06/26/17 History Vitamin B Complex TAB* [B 1 tab PO DAILY 06/26/17 06/26/17 History Complex-50*] ALPRAZolam TAB* [Xanax TAB*] 0.25 mg PO Q6H PRN tab MDD 1 mg 07/20/17 Rx Digoxin TAB* [Lanoxin TAB*] 0.125 mg PO EVERY OTHER DAY #15 tab 07/20/17 Rx Magnesium Oxide TAB* [MagOx 400 400 mg PO BID #60 tab 07/20/17 Rx TAB*] Metoprolol Succinate XL TAB* 12.5 mg PO DAILY@0900 #30 tab.xl 07/20/17 Rx [Toprol XL TAB*] Midodrine (NF) 5 mg PO TID #90 tab 07/20/17 Rx Potassium Chlor TAB* [Potassium 20 meq PO BID #60 tab.er 07/20/17 Rx Chlor TAB 20 MEQ*] bolded medications are new or changed dosage DISCHARGE FOLLOW UP: 1. Dr. Rm within one week to continue titration of cardiac meds 2. Dr. Vargas 1-[address] Brown 08/01 at 3:40 pm HOSPITAL COURSE: Mr. Moreno was admitted on the after presenting to my office earlier in the day pancytopenic and hypotensive PRIOR to receiving any blood transfusions. He completely denied chest pain at that time and was asymptomatic from his hypotension. He received 2 U PRBC and 1 L of fluid with 4g magnesium, and wanted to go home. He was advised to hold his metoprolol that day, which he had not taken yet, and come back first thing in the am. Several hours later he developed shaking chills and a fever. He was advised to go to the ER where he was still hypotensive but also febrile with troponin of 4. He was transferred to the ICU and started on pressor support for refractory hypotension. He had broad spectrum antibiotics. His fevers persisted for the first 12 hours making a transfusion reaction much less likely. The source of his sepsis was not clear. He had a cardiology consultation and echocardiogram revealing new systolic heart failure with an EF of 20%. Unfortunately given his thrombocytopenia and severe hypotension, optimal management was difficult. He did eventually start back on his aspirin and statin. He was started on midodrine to help pressures, and will be continued on this to be tapered off by cardiology as an outpatient. He did have very gentle diuresis on the 30th given hypoxia and crackles on exam, which he tolerated well. Lower dose bblocker was resumed this am. 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 Given his multiple recent complications it is unlikely that he will finish his final cycle of chemotherapy, however I will review this as an outpatient. He did have hypoxia <88% on Room air, and will go home on 3L O2 with plan to titrate off as an outpatient. >30 mins spent on this discharge, >50% in face to face counseling
[2017-07-20] MEDS ORDERED: Metoprolol Succinate XL TAB* 25 MG PO SCH (08:00)
[2017-07-20] MEDS ORDERED: Magnesium Sulf 4 GM/100 ML IV* 4,000 MG/100 ML BAG IVPB ONE (08:00)
[2017-07-20 08:07] LABS: Monocytes % 14 % (0-7)
[2017-07-20] MEDS: Aspirin EC TAB* 325 MG PO SCH (09:00)
[2017-07-20] MEDS ORDERED: Magnesium Oxide TAB* 400 MG PO SCH (09:00)
[2017-07-20] MEDS: Potassium Chlor TAB* 20 MEQ TAB.ER PO SCH (09:01)
[2017-07-20] MEDS: CMCS - Midodrine (NF) 5 MG TAB PO SCH ×2 (09:01→14:07)
[2017-07-20] MEDS: Enoxaparin(*) 40 MG/0.4 ML SYR SUBCUT SCH (11:45)
[2017-07-20 12:40] VITALS: BP 97/56
== END 2017-07-20 15:20 | disposition home or self-care (01) | DRG 871 ==
LOC: ED 00:57 → ICU 04:22 → MEDTELE 07-19 08:35
PROVIDERS: ADMIT Hospitalist; ATTEND Internal Medicine Hematology & Oncology
PROC: 30233N1 Transfusion of Nonautologous Red Blood Cells into Peripheral Vein, Percutaneous Approach (ICD-10-PCS; principal; 2017-07-18)
DX: A41.9 Sepsis, unspecified organism (principal); I50.21 Acute systolic (congestive) heart failure; D61.810 Antineoplastic chemotherapy induced pancytopenia; R65.21 Severe sepsis with septic shock; I21.A1 Myocardial infarction type 2; C34.31 Malignant neoplasm of lower lobe, right bronchus or lung; R74.8 Abnormal levels of other serum enzymes; I11.0 Hypertensive heart disease with heart failure; I95.9 Hypotension, unspecified; R09.02 Hypoxemia; E11.51 Type 2 diabetes mellitus with diabetic peripheral angiopathy without gangrene; E78.5 Hyperlipidemia, unspecified; I25.5 Ischemic cardiomyopathy; I25.119 Atherosclerotic heart disease of native coronary artery with unspecified angina pectoris; I45.10 Unspecified right bundle-branch block; I44.0 Atrioventricular block, first degree; I08.1 Rheumatic disorders of both mitral and tricuspid valves; I27.20 Pulmonary hypertension, unspecified; I65.29 Occlusion and stenosis of unspecified carotid artery; I69.320 Aphasia following cerebral infarction; Z79.82 Long term (current) use of aspirin; Z79.899 Other long term (current) drug therapy; Z87.891 Personal history of nicotine dependence
CPT/HCPCS: 1036F; 1126F; 36415; 36430; 36592; 70450; 71045; 80048; 80053; 80202; 81003; 82533; 82565; 83605; 83735; 83880; 84484; 84520; 85025; 85060; 85610; 85730; 86850; 86900; 86901; 86922; 87040; 87086; 87502; 87641; 93005; 93306; 94760; 96365; 96366; 99212; 99214; 99233; 99285; A9270-GY; G0463; G8427; G8978-GP-CJ; G8978-GP-CK; G8979-GP-CH; G8987-GO-CL; G8988-GO-CJ; J0692; J1100; J1160; J1453; J1644; J1650; J1720; J1940; J2270; J2469; J2543; J3370; J3475; J3480; J9045; J9305; P9016; P9040